=== PATIENT | female | born 1940 | race Hispanic/Latino ===

== ENCOUNTER 2017-02-15 20:30 | Outpatient (CLI) | payer MEDICARE, MEDICAID | END 2017-02-15 20:31 | disposition home or self-care (01) | LOC: SLEEPLAB 20:30 | PROVIDERS: ATTEND Family Medicine | DX: G47.33 Obstructive sleep apnea (adult) (pediatric) (principal); I11.0 Hypertensive heart disease with heart failure; I50.9 Heart failure, unspecified; E11.9 Type 2 diabetes mellitus without complications; I25.10 Atherosclerotic heart disease of native coronary artery without angina pectoris; G47.10 Hypersomnia, unspecified; I48.91 Unspecified atrial fibrillation; R06.83 Snoring | CPT/HCPCS: 95811 ==

== ENCOUNTER 2017-08-25 18:41 | Inpatient (IN) | payer MEDICARE, MEDICAID ==
[2017-08-25 19:51] LABS: #Eosinphils 0.1 thou/uL (0.0-0.7); #Lymphocytes 0.9 thou/uL (1.20-3.40); #Monocytes 0.6 thou/uL (0.11-0.59); #Neutrophils 2.9 thou/uL (1.40-6.50); %Basophils 0.6 % (0.0-1.0); %Eosinophils 2.7 % (0.0-10.0); %Lymphocytes 19.4 % (21.0-51.0); %Neutrophils 64.3 % (42.0-75.0); Hemoglobin 13.1 g/dL (12.0-16.0); Mean Corpuscular HGB CONC 33.4 g/dL (32.0-36.0); Mean Corpuscular Hemoglobin 32.6 pg (27.0-31.0); Mean Corpuscular Volume 97.6 fl (81.0-99.0); Mean Platelet Volume 7.8 fL (7.4-10.4); Platelet Count 160 thou/uL (130-400); RBC Distribution Width 13.6 % (11.5-14.5); Red Blood Cell (RBC) Count 4.01 mill/uL (4.20-5.40); White Blood Cell (WBC) Count 4.5 thou/uL (4.8-10.8)
[2017-08-25 20:04] LABS: Bilirubin Negative (Negative); Blood, Urine Moderate (Negative); Clarity CLOUDY (Clear); Glucose, Urine (Dipstick) Negative (Negative); Leukocyte Large (Negative); Nitrite Negative (Negative); Protein, Urine (Dipstick) 100 mg/dL (Neg-Trace); Specific Gravity, Urine 1.015 (1.002-1.036); Urobilinogen 0.2 mg/dL (0.2-1.0)
[2017-08-25 20:11] LABS: Bacteria/HPF 4+ HPF (None Seen); Hyaline Casts/LPF NONE SEEN LPF (0-3 Hyaline); WBC/HPF 21-50 HPF (0-3)
[2017-08-25 20:11] LABS: ALT (SGPT) 13 U/L (8-55); AST (SGOT) 23 U/L (5-34); Alkaline Phosphatase 196 U/L (40-150); Anion Gap 16 mmol/L (10-20); BUN (Urea Nitrogen) 35 mg/dL (9.8-20.1); Bilirubin, Total 0.8 mg/dL (0.2-1.2); Calc. Creatinine Clearance 0 mL/min (70-130); Calcium 9.5 mg/dL (7.8-10.44); Carbon Dioxide 32 mmol/L (23-31); Chloride 93 mmol/L (98-107); Estimated GFR-MDRD 11; Globulin 3.9 g/dL (2.4-3.5); Glucose 150 mg/dL (83-110); Potassium 3.3 mmol/L (3.5-5.1); Protein, Total 7.9 g/dL (6.0-8.3); Sodium 138 mmol/L (136-145)
[2017-08-25 20:22] LABS: CKMB 2.8 ng/mL (0-6.6); Troponin I 0.202 ng/mL (< 0.028)
--- NOTE | 2017-08-25 21:28 | CT ---
ABDOMEN AND PELVIS CT SCAN WITHOUT IV CONTRAST: HISTORY: A 77-year-old female with centralized abdominal pain and loss of appetite. The patient is on dialysi s. FINDINGS: Minimal increased markings in the left lung base, possibly some subsegmental atelectasis or mild duplicating machine operator bam change. Cardiomegaly. Multiple gallstones within the gallbladder without gallbladder wall thick ening or pericholecystic fat stranding. The liver, pancreas, and spleen appear unremarkable. Both k idneys are small and show some chronic calcifications. There are two areas of nodularity involving t he posterior aspect of the left kidney. One approximates 1.7 cm. These could potentially represent solid masses or may just represent some prominent lobulation. There are some prominent vascula r calcifications. There is some moderate distention of the colon with gas and fecal material, inclu ding a dilated rectum and rectosigmoid region. No CT evidence for acute appendicitis. No abscess or abnormal fluid collection within the abdomen or pelvis. The bladder is somewhat contracted and has a somewhat thick wall, probably related to the degree of contraction. There is an old, severe compression fracture at T12 with marked associated canal stenosis, but this w as present on a prior, 02/13/2016, plain film examination. IMPRESSION: Cardiomegaly. Minimal parenchymal changes in the left base, nonspecific, possibly chronic. Small ch ronic appearing kidneys bilaterally. The left kidney has two focal nodular areas projecting posterio rly, possibly representing small masses or prominent lobulation. No hydronephrosis. Cholelith iasis in the dependent portion of the gallbladder without evidence for gallbladder wall thickening or pericholecystic fluid or abnormal fat stranding. Colonic dilatation and distention with gas and ousmane e fecal material. Other findings as above. POS: [facility]
--- NOTE | 2017-08-25 21:35 | RAD ---
UPRIGHT PORTABLE CHEST ONE VIEW: HISTORY: A 77-year-old female with a history of fatigue, decreased appetite, altered mental status, and insomn ia. FINDINGS: There is considerable rotation to the left. There is a left ICD. There is bilateral vascular conges tion and cardiomegaly. No confluent pneumonia or overt edema. IMPRESSION: Rotation to the left. Left implantable cardioverter-defibrillator. Bilateral vascular congestion wi th cardiomegaly without confluent pneumonia or overt edema. POS: [facility]
[2017-08-25] MEDS ORDERED: Ondansetron ODT 4 MG TAB ONE (22:00)
[2017-08-25] MEDS ORDERED: Aspirin 325 MG TAB ONE (22:53)
[2017-08-26 00:28] LABS: Troponin I 0.193 ng/mL (< 0.028)
[2017-08-26] MEDS ORDERED: Ondansetron ODT 4 MG TAB SL PRN (02:10)
[2017-08-26] MEDS ORDERED: Ondansetron HCl/PF 4 MG/2 ML Vial IVP PRN ×2 (02:10→06:46)
[2017-08-26] MEDS ORDERED: Acetaminophen 325 MG TAB PO PRN ×2 (02:10→06:46)
[2017-08-26 03:13] LABS: Troponin I 0.207 ng/mL (< 0.028)
[2017-08-26 03:37] VITALS: BMI 20.7
[2017-08-26 05:55] LABS: #Eosinphils 0.1 thou/uL (0.0-0.7); #Lymphocytes 1.3 thou/uL (1.20-3.40); #Monocytes 0.6 thou/uL (0.11-0.59); #Neutrophils 2.3 thou/uL (1.40-6.50); %Basophils 0.5 % (0.0-1.0); %Eosinophils 3.2 % (0.0-10.0); %Lymphocytes 30.9 % (21.0-51.0); %Monocytes 12.8 % (0.0-10.0); %Neutrophils 52.6 % (42.0-75.0); Hemoglobin 11.9 g/dL (12.0-16.0); Mean Corpuscular HGB CONC 33.2 g/dL (32.0-36.0); Mean Corpuscular Hemoglobin 32.6 pg (27.0-31.0); Mean Platelet Volume 8.1 fL (7.4-10.4); Platelet Count 150 thou/uL (130-400); RBC Distribution Width 13.7 % (11.5-14.5); Red Blood Cell (RBC) Count 3.65 mill/uL (4.20-5.40); White Blood Cell (WBC) Count 4.3 thou/uL (4.8-10.8)
[2017-08-26 06:18] LABS: ALT (SGPT) 12 U/L (8-55); AST (SGOT) 20 U/L (5-34); Albumin 3.4 g/dL (3.4-4.8); Alkaline Phosphatase 144 U/L (40-150); Anion Gap 15 mmol/L (10-20); BUN (Urea Nitrogen) 40 mg/dL (9.8-20.1); Bilirubin, Total 0.6 mg/dL (0.2-1.2); Calc. Creatinine Clearance 10 mL/min (70-130); Calcium 8.8 mg/dL (7.8-10.44); Carbon Dioxide 32 mmol/L (23-31); Chloride 95 mmol/L (98-107); Estimated GFR-MDRD 10; Globulin 3.1 g/dL (2.4-3.5); Glucose 94 mg/dL (83-110); Magnesium 2.3 mg/dL (1.6-2.6); Potassium 3.3 mmol/L (3.5-5.1); Protein, Total 6.5 g/dL (6.0-8.3); Sodium 139 mmol/L (136-145)
[2017-08-26] MEDS ORDERED: Loperamide HCl 2 MG CAP PO PRN (06:46)
[2017-08-26] MEDS ORDERED: Senokot 8.6 MG TAB PO PRN (06:46)
[2017-08-26] MEDS ORDERED: Ondansetron ODT 4 MG TAB PO PRN (06:46)
[2017-08-26] MEDS ORDERED: Artificial Tears 18 DROP/0.9 ML EA EYE PRN (06:46)
[2017-08-26] MEDS ORDERED: hydrALAZINE 20 MG/ML VIAL SLOW IVP PRN (06:46)
[2017-08-26] MEDS ORDERED: Mag-Al 1200 mg/1200 mg/30 ML UDCUP PO PRN (06:46)
[2017-08-26] MEDS ORDERED: Diabetic Tussin 200 MG/10 ML UDCUP PO PRN (06:46)
[2017-08-26] MEDS ORDERED: Chloraseptic Spray 180 ml Bottle PO PRN (06:46)
[2017-08-26] MEDS ORDERED: Nitroglycerin 0.4 MG TAB (25 Tab Bottle) SL PRN (06:46)
[2017-08-26] MEDS ORDERED: Loratadine 10 MG TAB PO PRN (06:46)
[2017-08-26] MEDS ORDERED: Sodium Chloride 0.65% Nasal 44 ML BOT EA NARE PRN (06:46)
[2017-08-26] MEDS ORDERED: Eucerin (Mineral Oil/Petrolatum,White) 30 gm Jar TOP PRN (06:46)
[2017-08-26] MEDS ORDERED: Milk Of Magnesia 30 ML UDCUP PO PRN (06:46)
[2017-08-26] MEDS ORDERED: cefTRIAXone\\ROCEPHIN 1 GM in Sodium Chloride 0.9% 100 ML IVPB SCH (07:00)
[2017-08-26] MEDS ORDERED: Potassium Chloride 20 MEQ TAB PO SCH (07:00)
[2017-08-26] MEDS ORDERED: Carvedilol 3.125 MG TAB PO SCH (09:00)
[2017-08-26] MEDS ORDERED: SACUBITRIL PO SCH (09:00)
[2017-08-26] MEDS ORDERED: Sacubitril 24.5 MG/Valsartan 25.5 MG TABLET PO SCH (09:00)
[2017-08-26] MEDS ORDERED: Non-Formulary Item 1 EACH (Ubidecarenone [Co Q-10] 100 MG) PO SCH (09:00)
[2017-08-26] MEDS ORDERED: VALSARTAN PO SCH (09:00)
[2017-08-26] MEDS: Ubidecarenone 50 MG CAP PO SCH (09:04)
[2017-08-26] MEDS: Folic Acid/Vit B Comp W-C PO SCH (09:05)
[2017-08-26] MEDS: Heparin 5,000 UNITS/ML VIAL SC SCH ×2 (09:05→20:55)
[2017-08-26] MEDS: Aspirin 81 mg Enteric Coated Tablet PO SCH (09:08)
[2017-08-26] MEDS: Multivitamin W/ Minerals 1 TAB PO SCH (09:11)
[2017-08-26] MEDS: Calcium Acetate 667 MG CAP PO SCH ×3 (09:12→18:12)
[2017-08-26] MEDS: Carvedilol 3.125 MG TAB PO SCH ×2 (09:19→20:54)
--- NOTE | 2017-08-26 12:02 | HP ---
PRIMARY CARE PHYSICIAN: Lloyd Murray M.D. REASON FOR ADMISSION: Failure to thrive in adult, urinary tract infection. HISTORY OF PRESENT ILLNESS: A 77-year-old female who has end-stage renal disease on hemodia lysis, who was brought to emergency room by family member for loss of appetite and generalized weakne ss for last 3-4 days. The patient was becoming weak day by day and she was feeling subjective fever at home. In the emergency room, this patient was found with urinary tract infection. She was afebri le. She also had elevated troponin, though she was not complaining of any chest pain, palpitation, d izziness or shortness of breath. She denies any constipation, diarrhea, melena or hematochezia. Patient was evaluated in the emergency room during night time and subsequently she was already admitt ed to medical floor for further evaluation and treatment for urinary tract infection. REVIEW OF SYSTEMS: The following complete review of systems was negative, unless otherwise mentioned in the HPI or below: Constitutional: Weight loss or gain, ability to conduct usual activities. Skin: Rash, itching. Eyes: Double vision, pain. ENT/Mouth: Nose bleeding, neck stiffness, pain, tenderness. Cardiovascular: Palpitations, dyspnea on exertion, orthopnea. Respiratory: Shortness of breath, wheezing, cough, hemoptysis, fever or night sweats. Gastrointestinal: Poor appetite, abdominal pain, heartburn, nausea, vomiting, constipation, or diarr hea. Genitourinary: Urgency, frequency, dysuria, nocturia. Musculoskeletal: Pain, swelling. Neurologic/Psychiatric: Anxiety, depression. Allergy/Immunologic: Skin rash, bleeding tendency. Please see my HPI for pertinent positive and negative. All other review of systems reviewed and nega tive except as mentioned in the HPI. ALLERGIES: ATIVAN. CURRENT HOME MEDICATIONS: Coenzyme Q10 100 mg p.o. daily, vitamin D2 50,000 units weekly, aspirin 81 mg daily, midodrine 2.5 mg Friday, Friday, and Friday on dialysis days, Coreg 3.125 half tablet t wice daily, PhosLo 667 mg 3 times daily and Entresto one tablet twice daily. PAST MEDICAL HISTORY: Congestive heart failure, type of heart failure is not known; diet controlled diabetes; hypertension; dementia; secondary hyperparathyroidism of renal origin; end-stage renal dise ase, on hemodialysis. PAST SURGICAL HISTORY: Dialysis access in the right arm, pacemaker placement, cholecystectomy, and h ysterectomy. SOCIAL HISTORY: Patient lives at home with her family. No history of tobacco, alcohol or illicit dr ug abuse. PAST PSYCHIATRIC HISTORY: Reviewed and negative. FAMILY HISTORY: No strong family history of premature coronary artery disease, stroke or cancer. EMERGENCY ROOM COURSE: Patient was given Rocephin 1 gram, aspirin 324 mg, and Zofran 4 mg in the [facility] room. PHYSICAL EXAMINATION: VITAL SIGNS: On arrival, blood pressure 131/83, pulse 70, respiratory rate 20, temperature 98.2, sat uration 100% on room air, weight 56.7 kilograms. GENERAL: Patient is currently alert, awake, no obvious acute distress. HEAD: Normocephalic, atraumatic. EYES: Pupils round, reactive to light. Extraocular muscle intact. ENT: Oropharynx within normal limits. Moist mucous membranes, no oral lesion, no pharyngeal erythem a, no exudate. NECK: Supple, no JVD, no thyromegaly, no carotid bruit, no jugular venous distention. LUNGS: Clear to auscultation without any rhonchi or rales. CARDIAC: S1 and S2 appears regular. No murmur, no gallop, no rub. ABDOMEN: Soft, bowel sounds present. Mild suprapubic discomfort noted. No peritoneal sign, no guar ding, no rigidity, no rebound. BACK: Examination unremarkable, no CVA tenderness. EXTREMITIES: Upper extremity passive movements of all joints are normal. Dialysis access site in th e right upper extremity with palpable thrill. Lower extremity, no edema. Good peripheral pulsation. SKIN: No skin rash. HEMATOLOGICAL SYSTEM: No lymphadenopathy. PSYCHIATRIC: Normal affect. HEMATOLOGIC SYSTEM: No lymphadenopathy. NEUROLOGIC: The patient is moving all four limbs. Speech normal. Motor and sensation within normal limits. Grossly nonfocal examination. IMAGING DATA AND SIGNIFICANT LABORATORY DATA: 1. EKG showing pacemaker rhythm, right bundle branch block pattern, nonspecific ST-T changes in infe rior leads. 2. Chest x-ray based on my review, AICD in place, bilateral pulmonary vascular congestion, cardiomeg donna without any pneumonia. 3. CT of the abdomen and pelvis without contrast showing chronic changes at left lung base, atrophic kidney, cholelithiasis. 4. CBC: WBC 4.5, hemoglobin 13.1, platelet 160. 5. BMP: Sodium 138, potassium 3.3, chloride 93, carbon dioxide 32, anion gap 16, BUN 35, creatinine 3.99, glucose 150, calcium 9.5. 6. LFT: AST 23, ALT 13, alkaline phosphatase 196, albumin 4.0. CK-MB 2.8, troponin 0.202, then 0.1 93, then 0.207. Urinalysis suggestive of urinary tract infection. ASSESSMENT AND PLAN/IMPRESSION: 1. Failure to thrive in adult, most likely related with underlying infection with urinary tract infe ction and underlying medical problem. The patient will be given nutritional supplement with Nepro t. i.d. 2. Urinary tract infection. We will continue Rocephin 1 gram q.24 hours and follow up on urine cult ure result. Based on culture result, we will change to antibiotic therapy accordingly. 3. End-stage renal disease, on hemodialysis. We will consult Nephrology for maintenance hemodialysi s while in hospital. The patient is due for dialysis on Friday, Friday and Friday. 4. Secondary hyperparathyroidism of renal origin. We will continue PhosLo 667 mg t.i.d. 5. Chronic congestive heart failure, type of EF is not known and that is why we will obtain echocard iography to assess ejection fraction and other structural abnormality. While in hospital, we will co ntinue low dose of Coreg as well as Entresto, which she is taking at home. 6. Hypotension, orthostatic. We will continue midodrine 2.5 mg on Friday, Friday and Friday. 7. Hypokalemia. We will give her potassium chloride 20 mEq p.o. one time dose. 8. Elevated troponin. We will obtain echocardiography to assess ejection fraction and other structu ral abnormality. We will continue with aspirin 81 mg p.o. daily. 9. Anemia of renal disease. We will continue Nephro-Ernie one tablet p.o. daily and ferrous sulfate 325 mg p.o. daily and multivitamin 1 tablet p.o. daily. 10. Deep venous thrombosis prophylaxis, heparin 5000 units subcu twice daily. 11. Gastrointestinal prophylaxis, Protonix 40 mg p.o. daily. CODE STATUS: The patient is FULL CODE. Patient does not have any surrogate decision maker at this p oint. Disposition plan based on clinical course. We are expecting patient's stay in hospital more than 2 m idnights. Patient will need PT/OT evaluation and possible alf home evaluation as well. Plan of care discussed with the patient in detail.
[2017-08-26] MEDS: Sacubitril 24.5 MG/Valsartan 25.5 MG TABLET PO SCH (20:55)
[2017-08-26] MEDS: cefTRIAXone\\ROCEPHIN 1 GM, Syringe 0.4 ML in Sterile Water 9.6 ML SLOW IVP SCH (20:55)
[2017-08-26] MEDS: HYDROcodone/Acetaminophen 5/325 mg Tablet PO PRN (20:56)
[2017-08-27 04:53] LABS: #Eosinphils 0.3 thou/uL (0.0-0.7); #Lymphocytes 1.5 thou/uL (1.20-3.40); #Monocytes 0.6 thou/uL (0.11-0.59); #Neutrophils 2.3 thou/uL (1.40-6.50); %Basophils 0.9 % (0.0-1.0); %Eosinophils 5.6 % (0.0-10.0); %Monocytes 12.7 % (0.0-10.0); %Neutrophils 48.9 % (42.0-75.0); Hemoglobin 12.2 g/dL (12.0-16.0); Mean Corpuscular HGB CONC 33.6 g/dL (32.0-36.0); Mean Corpuscular Hemoglobin 33.8 pg (27.0-31.0); Mean Platelet Volume 8.3 fL (7.4-10.4); Platelet Count 130 thou/uL (130-400); RBC Distribution Width 13.6 % (11.5-14.5); Red Blood Cell (RBC) Count 3.61 mill/uL (4.20-5.40); White Blood Cell (WBC) Count 4.7 thou/uL (4.8-10.8)
[2017-08-27 05:03] LABS: Albumin 3.3 g/dL (3.4-4.8); Anion Gap 16 mmol/L (10-20); BUN (Urea Nitrogen) 64 mg/dL (9.8-20.1); BUN/Creatinine Ratio 11.17; Calc. Creatinine Clearance 7 mL/min (70-130); Calcium 8.9 mg/dL (7.8-10.44); Carbon Dioxide 34 mmol/L (23-31); Chloride 93 mmol/L (98-107); Estimated GFR-MDRD 7; Glucose 88 mg/dL (83-110); Phosphorus 5.1 mg/dL (2.3-4.7); Potassium 4.2 mmol/L (3.5-5.1); Sodium 139 mmol/L (136-145)
[2017-08-27] MEDS: Folic Acid/Vit B Comp W-C PO SCH (08:12)
[2017-08-27] MEDS: Sacubitril 24.5 MG/Valsartan 25.5 MG TABLET PO SCH ×2 (08:12→20:29)
[2017-08-27] MEDS: Aspirin 81 mg Enteric Coated Tablet PO SCH (08:13)
[2017-08-27] MEDS: Midodrine HCl 5 MG TAB PO SCH (08:13)
[2017-08-27] MEDS: Carvedilol 3.125 MG TAB PO SCH ×2 (08:15→20:28)
[2017-08-27] MEDS: Multivitamin W/ Minerals 1 TAB PO SCH (08:16)
[2017-08-27] MEDS: Calcium Acetate 667 MG CAP PO SCH ×3 (08:16→16:05)
[2017-08-27] MEDS: Ubidecarenone 50 MG CAP PO SCH (08:18)
[2017-08-27] MEDS ORDERED: MIDODRINE HCL 2.5 MG PO SCH (09:00)
[2017-08-27] MEDS: Heparin 5,000 UNITS/ML VIAL SC SCH ×2 (09:45→20:28)
--- NOTE | 2017-08-27 10:50 | PDOC.PN ---
- Subjective Encounter Start Date: 08/27/17 Encounter Start Time: 09:20 -: old records requested/rev Patient seen and examined. No new complaints. No overnight events - Objective Resuscitation Status: Resuscitation Status FULL:Full Resuscitation MAR Reviewed: Yes Vital Signs & Weight: Vital Signs (12 hours) Temp Pulse Resp BP Pulse Ox 08/27/17 08:06 97.3 F L 70 14 125/60 96 08/27/17 08:00 97.3 F L 70 14 96 Weight Weight 125 lb 0.034 oz I&O: 08/26/17 08/27/17 08/28/17 06:59 06:59 06:59 Intake Total 380 Balance 380 Result Diagrams: 08/27/17 03:51 08/27/17 03:51 Phys Exam - Physical Examination Constitutional: NAD HEENT: PERRLA, moist MMs, sclera anicteric Neck: no JVD, supple Respiratory: no wheezing, no rales, no rhonchi Cardiovascular: RRR, no significant murmur, no rub Gastrointestinal: soft, non-tender, no distention, positive bowel sounds Musculoskeletal: no edema, pulses present Neurological: non-focal, normal sensation Lymphatic: no nodes Psychiatric: normal affect Skin: no rash, normal turgor Dx/Plan (1) Elevated troponin Code(s): R74.8 - ABNORMAL LEVELS OF OTHER SERUM ENZYMES Status: Acute (2) Failure to thrive in adult Status: Acute (3) Hypotension Status: Acute (4) UTI (urinary tract infection) Status: Acute (5) Anemia of renal disease Code(s): D63.1 - ANEMIA IN CHRONIC KIDNEY DISEASE Status: Chronic (6) CHF (congestive heart failure) Code(s): I50.9 - HEART FAILURE, UNSPECIFIED Status: Chronic (7) ESRD (end stage renal disease) on dialysis Code(s): N18.6 - END STAGE RENAL DISEASE; Z99.2 - DEPENDENCE ON RENAL DIALYSIS Status: Chronic (8) Secondary hyperparathyroidism of renal origin Code(s): N25.81 - SECONDARY HYPERPARATHYROIDISM OF RENAL ORIGIN Status: Chronic - Plan cont current plan of care, plan discussed w/ family, PT/OT, psych social worker * medication reviewed as below * symptomatic treatment * await placement * continue rocephin * echo will be done * tomorrow plan for discharge to [place] once approved * discussed with family. Review of Systems - Review of Systems Other: unable to review due to dementia - Medications/Allergies Allergies/Adverse Reactions: Allergies Allergy/AdvReac Type Severity Reaction Status Date / Time lorazepam [From Ativan] AdvReac Verified 08/26/17 02:10 Medications: Current Medications Acetaminophen (Tylenol) 650 mg PO Q4H PRN PRN Reason: Headache/Fever or Pain Hydrocodone Bitart/Acetaminophen ([place] 5/325) 1 tab PO Q4H PRN PRN Reason: Moderate Pain (4-6) Last Admin: 08/26/17 20:56 Dose: 1 tab Al Hydroxide/Mg Hydroxide (Maalox) 30 ml PO Q6H PRN PRN Reason: Heartburn or Indigestion Artificial Tears (Tears Naturale) 0 drop EA EYE PRN PRN PRN Reason: Dry Eyes Aspirin (Ecotrin) 81 mg PO DAILY [facility] Last Admin: 08/27/17 08:13 Dose: 81 mg Calcium Acetate (Phoslo) 667 mg PO TID-WM [facility] Last Admin: 08/27/17 08:16 Dose: 667 mg Carvedilol (Coreg) 1.575 mg PO BID [facility] Last Admin: 08/27/17 08:15 Dose: 1.575 mg Coenzyme Q10 (Coenzyme Q10) 100 mg PO DAILY [facility] Last Admin: 08/27/17 08:18 Dose: 100 mg Guaifenesin (Robitussin Sf) 200 mg PO Q4H PRN PRN Reason: Cough Heparin Sodium (Porcine) (Heparin) 5,000 units SC BID [facility] Last Admin: 08/27/17 09:45 Dose: Not Given Hydralazine HCl (Apresoline) 10 mg SLOW IVP Q4H PRN PRN Reason: Systolic BP > 180 Ceftriaxone Sodium 1 gm/ (Syringe 0.4 ml/ Sterile Water) 10 mls @ 120 mls/hr SLOW IVP 2100 [facility] Last Admin: 08/26/17 20:55 Dose: 10 mls Iron/Minerals/Multivitamins (Theragran M) 1 tab PO DAILY [facility] Last Admin: 08/27/17 08:16 Dose: 1 tab Loperamide HCl (Imodium) 2 mg PO PRN PRN PRN Reason: Diarrhea/Loose Stools Loratadine (Claritin) 10 mg PO DAILYPRN PRN PRN Reason: Sinus Symptoms Magnesium Hydroxide (Milk Of Magnesium) 30 ml PO DAILYPRN PRN PRN Reason: Constipation Midodrine (Proamatine) 2.5 mg PO MWF [facility] Last Admin: 08/27/17 08:13 Dose: 2.5 mg Mineral Oil/White Petrolatum (Eucerin Cream) 0 gm TOP BIDPRN PRN PRN Reason: Dry Skin Nitroglycerin (Nitrostat) 0.4 mg SL Q5MIN PRN PRN Reason: Chest Pain Ondansetron HCl (Zofran Odt) 4 mg PO Q6H PRN PRN Reason: Nausea/Vomiting Ondansetron HCl (Zofran) 4 mg IVP Q6H PRN PRN Reason: Nausea/Vomiting Pantoprazole Sodium (Protonix) 40 mg PO DAILY [facility] Last Admin: 08/27/17 08:14 Dose: 40 mg Phenol (Chloraseptic [place] 180 Ml Bot) 0 ml PO PRN PRN PRN Reason: Sore Throat Sacubitril/Valsartan (Entresto 24.5 Mg-25.5 Mg Tablet) 1 tab PO BID [facility] Last Admin: 08/27/17 08:12 Dose: 1 tab Senna (Senokot) 2 tab PO HSPRN PRN PRN Reason: Constipation Sodium Chloride ([place] Nasal [place] 0.65%) 0 ml EA NARE QIDPRN PRN PRN Reason: Nasal Congestion Sodium Chloride (Flush - Normal Saline) 10 ml IVF Q12HR [facility] Last Admin: 08/27/17 08:20 Dose: 10 ml Sodium Chloride (Flush - Normal Saline) 10 ml IVF PRN PRN PRN Reason: Saline Flush Vitamin B Complex/Vit C/Folic Acid (Nephro-Ernie Tablet) 1 tab PO DAILY [facility] Last Admin: 08/27/17 08:12 Dose: 1 tab
--- NOTE | 2017-08-27 10:51 | CON ---
DATE OF CONSULTATION: 08/26/2017 CONSULTING PHYSICIAN: Dr. Daniel. REASON FOR CONSULTATION: End stage renal disease, evaluation and care. REASON FOR ADMISSION: Failure to thrive, loss of appetite. HISTORY OF PRESENT ILLNESS: This is a 77-year-old female with history of end- stage renal disease, hypertension, coronary artery disease, type 2 diabetes, and dementia, came to the hospital with loss of appetite and weakness and is being evaluated for possible UTI. Nephrology is consulted for maintenance hemodialysis, he gets dialysis Friday, Friday, and Friday. Had dialysis yesterday. No fever or chills. No nausea, vomiting reported. PAST MEDICAL HISTORY: Positive for end-stage renal disease, coronary artery disease, type 2 diabetes, dementia, hypertension. PAST SURGICAL HISTORY: Dialysis access placement, cholecystectomy, hysterectomy. HOME MEDICATIONS: Coenzyme Q10, vitamin D2, aspirin, midodrine, Coreg, PhosLo, and Entresto. ALLERGIES: ATIVAN. SOCIAL HISTORY: No smoking, alcohol or drug abuse. FAMILY HISTORY: No history of any kidney disease. REVIEW OF SYSTEMS: The following complete review of systems was negative, unless otherwise mentioned in the HPI or below: Constitutional: Weight loss or gain, ability to conduct usual activities. Skin: Rash, itching. Eyes: Double vision, pain. ENT/Mouth: Nose bleeding, neck stiffness, pain, tenderness. Cardiovascular: Palpitations, dyspnea on exertion, orthopnea. Respiratory: Shortness of breath, wheezing, cough, hemoptysis, fever or night sweats. Gastrointestinal: Poor appetite, abdominal pain, heartburn, nausea, vomiting, constipation, or diarrhea. Genitourinary: Urgency, frequency, dysuria, nocturia. Musculoskeletal: Pain, swelling. Neurologic/Psychiatric: Anxiety, depression. Allergy/Immunologic: Skin rash, bleeding tendency. PHYSICAL EXAMINATION: GENERAL: This is an obese female in no apparent distress. VITAL SIGNS: Temperature 97.8, pulse 70, respiratory rate 16, blood pressure 114/69. HEENT: Atraumatic, normocephalic. Oral mucosa is moist. NECK: Supple, no masses. CARDIOVASCULAR: S1, S2 heard. Rate and rhythm regular. RESPIRATORY: Clear. GI: Abdomen is soft. MUSCULOSKELETAL: There is no edema. DERMATOLOGIC: No rash. NEUROLOGIC: Alert, awake. PSYCHIATRIC: Normal mood and affect. LABORATORY: Hemoglobin is 13.1, potassium is 3.3, BUN is 40, creatinine is 4.3. ASSESSMENT AND PLAN: 1. End-stage renal disease on hemodialysis. Plan is to continue on dialysis as tolerated. 2. Dementia 3. Edema, controlled. 4. Hypertension. 5. Hypokalemia. We will monitor. Increase dietary intake. 6. Anemia. Hemoglobin is stable. Plan is to continue on dialysis as tolerated and increase p.o. intake. We will follow. Pyuria. Follow up cultures. We will continue to follow. Thank you for the consult. GEOFFREY
--- NOTE | 2017-08-27 12:12 | PRG ---
Patient Name: MARYAN WEBER Date of service: 08/27/2017 Subjective: Patient was seen and examined at bedside and overnight events noted. Patient denies any shortness of breath or chest pain or palpitation. No history of nausea or vomiting or diarrhea or fever or chills or cramps. Objective: General: This is a well-built female in no apparent distress. Vital signs: Temperature 97.3, pulse 70, respirations 20, blood pressure 125/60. HEENT: Atraumatic, normocephalic. Oral mucosa is moist. Neck: Supple. Cardiovascular: S1 S2 heard. Rate and rhythm regular. Respiratory: Clear to auscultation. Gastrointestinal: Abdomen is soft. Musculoskeletal: No tenderness. No edema. Dermatologic: No skin rash. Neurologic: Alert and awake and oriented X3. No focal neurologic deficits. Moving all the extremities. Psychiatric: Mood and affect normal. LABORATORY DATA: Potassium is 4.2, BUN 64, creatinine is 5.7. ASSESSMENT AND PLAN: 1. End-stage renal disease. Continue hemodialysis. 2. Edema, controlled. 3. Hypertension. 4. Anemia. 5. Continue dialysis as tolerated Friday, Friday, and Friday.
[2017-08-27] MEDS ORDERED: Ampicillin 1 GM in Sodium Chloride 0.9% 100 ML IVPB SCH (17:00)
[2017-08-27] MEDS ORDERED: Ziprasidone 20 MG VIAL IM PRN (18:10)
[2017-08-27] MEDS: cefTRIAXone\\ROCEPHIN 1 GM, Syringe 0.4 ML in Sterile Water 9.6 ML SLOW IVP SCH (20:28)
[2017-08-28] MEDS: HYDROcodone/Acetaminophen 5/325 mg Tablet PO PRN (00:12)
[2017-08-28] MEDS: Multivitamin W/ Minerals 1 TAB PO SCH (07:49)
[2017-08-28] MEDS: Calcium Acetate 667 MG CAP PO SCH ×3 (07:49→16:37)
[2017-08-28] MEDS: Carvedilol 3.125 MG TAB PO SCH ×2 (07:50→21:11)
[2017-08-28] MEDS: Folic Acid/Vit B Comp W-C PO SCH (07:50)
[2017-08-28] MEDS: Aspirin 81 mg Enteric Coated Tablet PO SCH (07:51)
[2017-08-28] MEDS: Heparin 5,000 UNITS/ML VIAL SC SCH ×2 (07:51→21:13)
[2017-08-28] MEDS: Ubidecarenone 50 MG CAP PO SCH (07:57)
[2017-08-28] MEDS: Sacubitril 24.5 MG/Valsartan 25.5 MG TABLET PO SCH ×2 (11:00→21:12)
--- NOTE | 2017-08-28 12:31 | PDOC.PN ---
- Subjective Encounter Start Date: 08/28/17 Encounter Start Time: 09:30 -: old records requested/rev pt is confused, bedside, pt is ob bladder irrigation, no fever - Objective Resuscitation Status: Resuscitation Status FULL:Full Resuscitation MAR Reviewed: Yes Vital Signs & Weight: Vital Signs (12 hours) Temp Pulse Resp BP Pulse Ox 08/28/17 12:20 97.6 F 70 18 109/66 70 L 08/28/17 08:00 98.6 F 70 16 96 08/28/17 05:26 98.1 F 70 18 104/61 96 Weight Weight 125 lb 0.034 oz I&O: 08/27/17 08/28/17 08/29/17 06:59 06:59 06:59 Intake Total 380 515 Output Total 500 Balance 380 15 Result Diagrams: 08/27/17 03:51 08/27/17 03:51 Additional Labs: Accuchecks 08/28/17 08/27/17 04:25 20:43 POC Glucose 107 208 H Phys Exam - Physical Examination Constitutional: NAD HEENT: PERRLA, moist MMs, sclera anicteric Neck: no JVD, supple Respiratory: no wheezing, no rales, no rhonchi Cardiovascular: RRR, no significant murmur, no rub Gastrointestinal: soft, non-tender, no distention, positive bowel sounds Musculoskeletal: no edema, pulses present Neurological: moves all 4 limbs Lymphatic: no nodes Psychiatric: normal affect Skin: no rash, normal turgor Dx/Plan (1) Elevated troponin Code(s): R74.8 - ABNORMAL LEVELS OF OTHER SERUM ENZYMES Status: Acute (2) Failure to thrive in adult Status: Acute (3) Hypotension Status: Acute (4) UTI (urinary tract infection) Status: Acute (5) Anemia of renal disease Code(s): D63.1 - ANEMIA IN CHRONIC KIDNEY DISEASE Status: Chronic (6) CHF (congestive heart failure) Code(s): I50.9 - HEART FAILURE, UNSPECIFIED Status: Chronic (7) ESRD (end stage renal disease) on dialysis Code(s): N18.6 - END STAGE RENAL DISEASE; Z99.2 - DEPENDENCE ON RENAL DIALYSIS Status: Chronic (8) Secondary hyperparathyroidism of renal origin Code(s): N25.81 - SECONDARY HYPERPARATHYROIDISM OF RENAL ORIGIN Status: Chronic - Plan cont current plan of care, continue antibiotics, PT/OT, social worker psychiatric * continue bladder irrigation * continue iv antibiotics as ordered * urology recommendation noted * medication reviewed as below * symptomatic treatment * will need placement * possible discharge tomorrow. Review of Systems - Review of Systems Other: not reliable due to dementia - Medications/Allergies Allergies/Adverse Reactions: Allergies Allergy/AdvReac Type Severity Reaction Status Date / Time lorazepam [From Ativan] AdvReac Verified 08/26/17 02:10 Medications: Current Medications Acetaminophen (Tylenol) 650 mg PO Q4H PRN PRN Reason: Headache/Fever or Pain Hydrocodone Bitart/Acetaminophen ([place] 5/325) 1 tab PO Q4H PRN PRN Reason: Moderate Pain (4-6) Last Admin: 08/28/17 00:12 Dose: 1 tab Al Hydroxide/Mg Hydroxide (Maalox) 30 ml PO Q6H PRN PRN Reason: Heartburn or Indigestion Artificial Tears (Tears Naturale) 0 drop EA EYE PRN PRN PRN Reason: Dry Eyes Aspirin (Ecotrin) 81 mg PO DAILY [facility] Last Admin: 08/28/17 07:51 Dose: 81 mg Calcium Acetate (Phoslo) 667 mg PO TID-WM [facility] Last Admin: 08/28/17 07:49 Dose: 667 mg Carvedilol (Coreg) 1.575 mg PO BID [facility] Last Admin: 08/28/17 07:50 Dose: 1.575 mg Coenzyme Q10 (Coenzyme Q10) 100 mg PO DAILY [facility] Last Admin: 08/28/17 07:57 Dose: 100 mg Guaifenesin (Robitussin Sf) 200 mg PO Q4H PRN PRN Reason: Cough Heparin Sodium (Porcine) (Heparin) 5,000 units SC BID [facility] Last Admin: 08/28/17 07:51 Dose: 5,000 units Hydralazine HCl (Apresoline) 10 mg SLOW IVP Q4H PRN PRN Reason: Systolic BP > 180 Ceftriaxone Sodium 1 gm/ (Syringe 0.4 ml/ Sterile Water) 10 mls @ 120 mls/hr SLOW IVP 2100 [facility] Last Admin: 08/27/17 20:28 Dose: 10 mls Iron/Minerals/Multivitamins (Theragran M) 1 tab PO DAILY [facility] Last Admin: 08/28/17 07:49 Dose: 1 tab Loperamide HCl (Imodium) 2 mg PO PRN PRN PRN Reason: Diarrhea/Loose Stools Loratadine (Claritin) 10 mg PO DAILYPRN PRN PRN Reason: Sinus Symptoms Magnesium Hydroxide (Milk Of Magnesium) 30 ml PO DAILYPRN PRN PRN Reason: Constipation Midodrine (Proamatine) 2.5 mg PO MWF [facility] Last Admin: 08/27/17 08:13 Dose: 2.5 mg Mineral Oil/White Petrolatum (Eucerin Cream) 0 gm TOP BIDPRN PRN PRN Reason: Dry Skin Nitroglycerin (Nitrostat) 0.4 mg SL Q5MIN PRN PRN Reason: Chest Pain Ondansetron HCl (Zofran Odt) 4 mg PO Q6H PRN PRN Reason: Nausea/Vomiting Ondansetron HCl (Zofran) 4 mg IVP Q6H PRN PRN Reason: Nausea/Vomiting Pantoprazole Sodium (Protonix) 40 mg PO DAILY [facility] Last Admin: 08/28/17 07:50 Dose: 40 mg Phenol (Chloraseptic [place] 180 Ml Bot) 0 ml PO PRN PRN PRN Reason: Sore Throat Sacubitril/Valsartan (Entresto 24.5 Mg-25.5 Mg Tablet) 1 tab PO BID [facility] Last Admin: 08/27/17 20:29 Dose: 1 tab Senna (Senokot) 2 tab PO HSPRN PRN PRN Reason: Constipation Sodium Chloride ([place] Nasal [place] 0.65%) 0 ml EA NARE QIDPRN PRN PRN Reason: Nasal Congestion Sodium Chloride (Flush - Normal Saline) 10 ml IVF Q12HR [facility] Last Admin: 08/28/17 07:58 Dose: 10 ml Sodium Chloride (Flush - Normal Saline) 10 ml IVF PRN PRN PRN Reason: Saline Flush Vitamin B Complex/Vit C/Folic Acid (Nephro-Ernie Tablet) 1 tab PO DAILY [facility] Last Admin: 08/28/17 07:50 Dose: 1 tab Ziprasidone ([place]) 10 mg IM Q6H PRN PRN Reason: .INCREASED AGGITATION
--- NOTE | 2017-08-28 14:50 | PRG ---
DATE OF SERVICE: 08/28/2017 SUBJECTIVE: Patient was seen and examined at bedside and overnight events noted. Patient denies any shortness of breath or chest pain or palpitation. No history of nausea or vomiting or diarrhea or fever or chills or cramps. OBJECTIVE: GENERAL: This is an elderly female in no apparent distress. VITAL SIGNS: Temperature 98.1, pulse 70, respiratory rate 18, blood pressure 104/61. HEENT: Atraumatic, normocephalic. Oral mucosa is moist. NECK: Supple. CARDIOVASCULAR: S1 and S2 heard. Rate and rhythm regular. RESPIRATORY: Clear to auscultation. GASTROINTESTINAL: Abdomen is soft. MUSCULOSKELETAL: No tenderness. No edema. DERMATOLOGIC: No skin rash. NEUROLOGIC: Alert and awake and oriented x3. No focal neurologic deficits. Moving all the extremit ies. PSYCHIATRIC: Mood and affect normal. LABORATORY DATA: Potassium is 4.2, BUN is 64, creatinine is 5.7. ASSESSMENT AND PLAN: 1. End-stage renal disease. We will continue on hemodialysis Friday, Friday, and Friday as jose guadalupe ated. 2. Edema, controlled. 3. Hypertension. 4. Anemia. Monitor hemoglobin. We will continue on dialysis Friday, Friday, and Friday. We will follow.
[2017-08-28] MEDS: cefTRIAXone\\ROCEPHIN 1 GM, Syringe 0.4 ML in Sterile Water 9.6 ML SLOW IVP SCH (21:16)
--- NOTE | 2017-08-29 09:19 | PRG ---
DATE OF SERVICE: 08/29/2017 SUBJECTIVE: Patient was seen and examined at bedside and overnight events noted. Patient denies any shortness of breath or chest pain or palpitation. No history of nausea or vomiting or diarrhea or f ever or chills or cramps. OBJECTIVE: GENERAL: This is an obese female, seen during dialysis. VITAL SIGNS: Temperature 97.3, pulse 70, respiratory rate 16, blood pressure 121/68. HEENT: Atraumatic, normocephalic, oral mucosa is moist. NECK: Supple. CARDIOVASCULAR: S1, S2 heard, rate and rhythm regular. RESPIRATORY: Clear to auscultation. GASTROINTESTINAL: Abdomen is soft. MUSCULOSKELETAL: No tenderness, no edema. DERMATOLOGIC: No skin rash. NEUROLOGIC: Alert and awake and oriented x3. No focal neurologic deficits. Moving all the extremit ies. PSYCHIATRIC: Mood and affect normal. LABORATORY DATA: Not done today. ASSESSMENT AND PLAN: 1. End-stage renal disease, seen during dialysis. We will continue on dialysis as tolerated, tolera ting well so far. We will continue on dialysis Friday, Friday, and Friday. 2. Edema. We will remove fluid. 3. Hypertension. 4. Anemia. We will monitor hemoglobin. Plan is to continue on dialysis as tolerated.
--- NOTE | 2017-08-29 11:48 | PDOC.PN ---
- Subjective Encounter Start Date: 08/29/17 Encounter Start Time: 09:15 Patient seen and examined. No new complaints. No overnight events - Objective Resuscitation Status: Resuscitation Status FULL:Full Resuscitation MAR Reviewed: Yes Vital Signs & Weight: Vital Signs (12 hours) Temp Pulse Resp BP Pulse Ox 08/29/17 08:00 97.3 F L 70 16 98 08/29/17 07:49 97.3 F L 70 16 121/68 98 Weight Weight 125 lb 0.034 oz I&O: 08/28/17 08/29/17 08/30/17 06:59 06:59 06:59 Intake Total 515 120 Output Total 500 100 Balance 15 20 Result Diagrams: 08/27/17 03:51 08/27/17 03:51 Phys Exam - Physical Examination Constitutional: NAD HEENT: PERRLA, moist MMs, sclera anicteric Neck: no JVD, supple Respiratory: no wheezing, no rales, no rhonchi Cardiovascular: RRR, no significant murmur, no rub Gastrointestinal: soft, non-tender, no distention, positive bowel sounds Musculoskeletal: no edema, pulses present Neurological: non-focal, normal sensation, moves all 4 limbs Psychiatric: normal affect Skin: no rash, normal turgor Dx/Plan (1) Elevated troponin Code(s): R74.8 - ABNORMAL LEVELS OF OTHER SERUM ENZYMES Status: Acute (2) Failure to thrive in adult Status: Acute (3) Hypotension Status: Acute (4) UTI (urinary tract infection) Status: Acute Comment: due to VRE (5) Anemia of renal disease Code(s): D63.1 - ANEMIA IN CHRONIC KIDNEY DISEASE Status: Chronic (6) CHF (congestive heart failure) Code(s): I50.9 - HEART FAILURE, UNSPECIFIED Status: Chronic (7) ESRD (end stage renal disease) on dialysis Code(s): N18.6 - END STAGE RENAL DISEASE; Z99.2 - DEPENDENCE ON RENAL DIALYSIS Status: Chronic (8) Secondary hyperparathyroidism of renal origin Code(s): N25.81 - SECONDARY HYPERPARATHYROIDISM OF RENAL ORIGIN Status: Chronic - Plan cont current plan of care, plan discussed w/ family, continue antibiotics, PT/OT , convention services manager * continue bladder irrgiation till 3 pm * then will place gentamicin in bladder and then after 1 hour will remove * await C & S result of VRE to treat this pt as an outpt basis * will consult ID for treatment * medication reviewed as below * symptomatic treatment * social work is working on final discharge placement . Review of Systems - Review of Systems ENT: negative: Ear Pain, Ear Discharge, Nose Pain, Nose Discharge, Nose Congestion, Mouth Pain, Mouth Swelling, Throat Pain, Throat Swelling, Other Respiratory: negative: Cough, Dry, Shortness of Breath, Hemoptysis, SOB with Excertion, Pleuritic Pain, Sputum, Wheezing Cardiovascular: negative: chest pain, palpitations, orthopnea, paroxysmal nocturnal dyspnea, edema, light headedness, other Gastrointestinal: negative: Nausea, Vomiting, Abdominal Pain, Diarrhea, Constipation, Melena, Hematochezia, Other Genitourinary: negative: Dysuria, Frequency, Incontinence, Hematuria, Retention , Other Musculoskeletal: negative: Neck Pain, Shoulder Pain, Arm Pain, Back Pain, Hand Pain, Leg Pain, Foot Pain, Other - Medications/Allergies Allergies/Adverse Reactions: Allergies Allergy/AdvReac Type Severity Reaction Status Date / Time lorazepam [From Ativan] AdvReac Verified 08/26/17 02:10 Medications: Current Medications Acetaminophen (Tylenol) 650 mg PO Q4H PRN PRN Reason: Headache/Fever or Pain Hydrocodone Bitart/Acetaminophen ([place] 5/325) 1 tab PO Q4H PRN PRN Reason: Moderate Pain (4-6) Last Admin: 08/28/17 00:12 Dose: 1 tab Al Hydroxide/Mg Hydroxide (Maalox) 30 ml PO Q6H PRN PRN Reason: Heartburn or Indigestion Artificial Tears (Tears Naturale) 0 drop EA EYE PRN PRN PRN Reason: Dry Eyes Aspirin (Ecotrin) 81 mg PO DAILY [facility] Last Admin: 08/28/17 07:51 Dose: 81 mg Calcium Acetate (Phoslo) 667 mg PO TID-[facility] Last Admin: 08/28/17 16:37 Dose: 667 mg Carvedilol (Coreg) 1.575 mg PO BID [facility] Last Admin: 08/28/17 21:11 Dose: 1.575 mg Coenzyme Q10 (Coenzyme Q10) 100 mg PO DAILY [facility] Last Admin: 08/28/17 07:57 Dose: 100 mg Guaifenesin (Robitussin Sf) 200 mg PO Q4H PRN PRN Reason: Cough Heparin Sodium (Porcine) (Heparin) 5,000 units SC BID [facility] Last Admin: 08/28/17 21:13 Dose: 5,000 units Hydralazine HCl (Apresoline) 10 mg SLOW IVP Q4H PRN PRN Reason: Systolic BP > 180 Ceftriaxone Sodium 1 gm/ (Syringe 0.4 ml/ Sterile Water) 10 mls @ 120 mls/hr SLOW IVP 2100 [facility] Last Admin: 08/28/17 21:16 Dose: 10 mls Gentamicin Sulfate 240 mg/ (Sodium Chloride) 506 mls @ 0 mls/hr IRR 1500 [facility] PRN Reason: As Directed Stop: 08/29/17 17:00 Iron/Minerals/Multivitamins (Theragran M) 1 tab PO DAILY [facility] Last Admin: 08/28/17 07:49 Dose: 1 tab Loperamide HCl (Imodium) 2 mg PO PRN PRN PRN Reason: Diarrhea/Loose Stools Loratadine (Claritin) 10 mg PO DAILYPRN PRN PRN Reason: Sinus Symptoms Magnesium Hydroxide (Milk Of Magnesium) 30 ml PO DAILYPRN PRN PRN Reason: Constipation Midodrine (Proamatine) 2.5 mg PO MWF [facility] Last Admin: 08/27/17 08:13 Dose: 2.5 mg Mineral Oil/White Petrolatum (Eucerin Cream) 0 gm TOP BIDPRN PRN PRN Reason: Dry Skin Nitroglycerin (Nitrostat) 0.4 mg SL Q5MIN PRN PRN Reason: Chest Pain Ondansetron HCl (Zofran Odt) 4 mg PO Q6H PRN PRN Reason: Nausea/Vomiting Ondansetron HCl (Zofran) 4 mg IVP Q6H PRN PRN Reason: Nausea/Vomiting Pantoprazole Sodium (Protonix) 40 mg PO DAILY [facility] Last Admin: 08/28/17 07:50 Dose: 40 mg Phenol (Chloraseptic [place] 180 Ml Bot) 0 ml PO PRN PRN PRN Reason: Sore Throat Sacubitril/Valsartan (Entresto 24.5 Mg-25.5 Mg Tablet) 1 tab PO BID [facility] Last Admin: 08/28/17 21:12 Dose: 1 tab Senna (Senokot) 2 tab PO HSPRN PRN PRN Reason: Constipation Sodium Chloride ([place] Nasal [place] 0.65%) 0 ml EA NARE QIDPRN PRN PRN Reason: Nasal Congestion Sodium Chloride (Flush - Normal Saline) 10 ml IVF Q12HR [facility] Last Admin: 08/28/17 21:12 Dose: 10 ml Sodium Chloride (Flush - Normal Saline) 10 ml IVF PRN PRN PRN Reason: Saline Flush Vitamin B Complex/Vit C/Folic Acid (Nephro-Ernie Tablet) 1 tab PO DAILY [facility] Last Admin: 08/28/17 07:50 Dose: 1 tab Ziprasidone (Geodon) 10 mg IM Q6H PRN PRN Reason: .INCREASED AGGITATION
--- NOTE | 2017-08-29 12:56 | DIS ---
DATE OF ADMISSION: 08/25/2017 DATE OF DISCHARGE: 08/29/2017 PRIMARY CARE PHYSICIAN: Dr. Lloyd Murray. DISCHARGE DISPOSITION: Home/[facility] home. PRIMARY DISCHARGE DIAGNOSES: Urinary tract infection due to vancomycin-resistant enterococci ; acute encephalopathy; failure to thrive in adult; hypotension, resolved; demand ischemia of myocardium. SECONDARY DISCHARGE DIAGNOSES: Anemia of renal disease, chronic; diastolic heart failure; end-stage renal disease, on hemodialysis; secondary hyperparathyroidism of renal origin. PRIMARY PROCEDURE/OPERATION: Maintenance hemodialysis. RADIOLOGICAL INVESTIGATION: Abdomen and pelvis CT scan, chest x-ray, echocardiography. SIGNIFICANT LABORATORY DATA: Hemoglobin 12.2, creatinine 5.73. Troponin 0.207. Urinalysis consiste nt with UTI. Urine culture grew VRE. DISCHARGE MEDICATIONS: Antibiotic therapy will be deferred to Dr. Pham and Urology. Continue follo wing medications: Aspirin 81 mg p.o. daily, PhosLo 667 mg t.i.d., Coreg 3.125 half tablet b.i.d., vi tamin D3 1000 units p.o. daily, Cipro 250 mg p.o. daily, Pepcid 20 mg p.o. daily, Nephro-Ernie 1 table t p.o. daily, midodrine 2.5 mg p.o. Friday, Friday, Friday, Seroquel 12.5 mg p.o. at bedtime, Entr esto half tablet b.i.d., coenzyme Q10 100 mg p.o. daily. CONTRAINDICATIONS: None. CODE STATUS: FULL CODE. INPATIENT CONSULTANTS: Dr. Medina was consulted for maintenance hemodialysis. Dr. Dinora Odonnell, ur ologist, was following while in hospital. Dr. Pham consulted while in hospital. TEST RESULTS PENDING ON DISCHARGE: Culture and sensitivity result of VRE. ALLERGIES: LORAZEPAM. DISCHARGE PLAN: Post hospital, the patient will follow up with primary care physician as well as Dr. Dinora Odonnell and Dr. Pham as instructed. HOSPITAL COURSE: This is a 77-year-old female, who was admitted by me. Please see my HPI for furthe r details. The patient was having delirium. She was having altered mental status that was related w ith her symptomatic UTI. The patient's culture grew VRE. Official culture and sensitivity result is pending to decide final antibiotic therapy on discharge. While in hospital, she received Rocephin, and on discharge, we are considering Cipro if work; otherwise, Urology did a bladder irrigation while in hospital and patient is also getting gentamicin in bladder. Patient is requiring placement per f amily member, including [facility] home and subsequently long-term placement. At this point, ca se solar sales manager is working on her placement. If Urology okay as well as ID team consulted today and if he is okay, then we will consider discharging her to long-term later on today. Final antibiotic we will defer, based on culture and sensitivity result, to Urology and ID team. The patient was getting maintenance hemodialysis while in hospital. The patient is seen and examined at bedside today. Please see my progress note from today. Paper work for discharge done. Discharg e medication reconciliation done.
[2017-08-29] MEDS: Calcium Acetate 667 MG CAP PO SCH ×3 (13:32→16:53)
[2017-08-29] MEDS: Aspirin 81 mg Enteric Coated Tablet PO SCH (13:35)
[2017-08-29] MEDS: Folic Acid/Vit B Comp W-C PO SCH (13:37)
[2017-08-29] MEDS: Carvedilol 3.125 MG TAB PO SCH ×2 (13:37→21:00)
[2017-08-29] MEDS: Midodrine HCl 5 MG TAB PO SCH (13:39)
[2017-08-29] MEDS: Heparin 5,000 UNITS/ML VIAL SC SCH ×2 (13:39→21:02)
[2017-08-29] MEDS: Multivitamin W/ Minerals 1 TAB PO SCH (13:40)
[2017-08-29] MEDS: Sacubitril 24.5 MG/Valsartan 25.5 MG TABLET PO SCH ×2 (13:43→21:00)
[2017-08-29] MEDS: Ubidecarenone 50 MG CAP PO SCH (13:44)
[2017-08-29] MEDS ORDERED: GENTAMICIN SULFATE IRR SCH (15:00)
[2017-08-29] MEDS ORDERED: SODIUM CHLORIDE 0.9% IRR SCH (15:00)
[2017-08-29] MEDS: cefTRIAXone\\ROCEPHIN 1 GM, Syringe 0.4 ML in Sterile Water 9.6 ML SLOW IVP SCH (20:58)
[2017-08-30] MEDS: Calcium Acetate 667 MG CAP PO SCH ×3 (08:53→18:50)
[2017-08-30] MEDS: Sacubitril 24.5 MG/Valsartan 25.5 MG TABLET PO SCH ×2 (08:54→20:51)
[2017-08-30] MEDS: Heparin 5,000 UNITS/ML VIAL SC SCH ×2 (08:54→20:52)
[2017-08-30] MEDS: Amoxicillin/Potassium Clav 250 MG TAB PO SCH ×2 (08:54→21:18)
[2017-08-30] MEDS: Folic Acid/Vit B Comp W-C PO SCH (08:54)
[2017-08-30] MEDS: Multivitamin W/ Minerals 1 TAB PO SCH (08:55)
[2017-08-30] MEDS: Carvedilol 3.125 MG TAB PO SCH ×2 (08:55→20:52)
[2017-08-30] MEDS: Ubidecarenone 50 MG CAP PO SCH (08:55)
[2017-08-30] MEDS: Aspirin 81 mg Enteric Coated Tablet PO SCH (08:59)
--- NOTE | 2017-08-30 10:01 | PDOC.PN ---
- Subjective Encounter Start Date: 08/30/17 Encounter Start Time: 07:20 Patient seen and examined. No new complaints. No overnight events - Objective Resuscitation Status: Resuscitation Status FULL:Full Resuscitation MAR Reviewed: Yes Vital Signs & Weight: Vital Signs (12 hours) Temp Pulse Resp BP Pulse Ox 08/30/17 08:00 98.2 F 71 18 115/71 95 Weight Weight 125 lb 0.034 oz I&O: 08/29/17 08/30/17 08/31/17 06:59 06:59 06:59 Intake Total 120 6230 Output Total 100 7610 Balance 20 -1380 Result Diagrams: 08/27/17 03:51 08/27/17 03:51 Phys Exam - Physical Examination Constitutional: NAD HEENT: PERRLA, moist MMs, sclera anicteric Neck: no JVD, supple Respiratory: no wheezing, no rales, no rhonchi Cardiovascular: RRR, no significant murmur, no rub Gastrointestinal: soft, non-tender, no distention, positive bowel sounds Musculoskeletal: no edema, pulses present Neurological: non-focal, normal sensation Lymphatic: no nodes Psychiatric: normal affect Skin: no rash, normal turgor Dx/Plan (1) UTI (urinary tract infection) Status: Acute Comment: due to VRE (2) Elevated troponin Code(s): R74.8 - ABNORMAL LEVELS OF OTHER SERUM ENZYMES Status: Acute Comment: demand ischemia (3) Failure to thrive in adult Status: Acute Comment: due to UTI (4) Hypotension Status: Resolved (5) Anemia of renal disease Code(s): D63.1 - ANEMIA IN CHRONIC KIDNEY DISEASE Status: Chronic (6) CHF (congestive heart failure) Code(s): I50.9 - HEART FAILURE, UNSPECIFIED Status: Chronic Qualifiers: Heart failure type: diastolic Heart failure chronicity: chronic Qualified Code(s): I50.32 - Chronic diastolic (congestive) heart failure (7) ESRD (end stage renal disease) on dialysis Code(s): N18.6 - END STAGE RENAL DISEASE; Z99.2 - DEPENDENCE ON RENAL DIALYSIS Status: Chronic (8) Secondary hyperparathyroidism of renal origin Code(s): N25.81 - SECONDARY HYPERPARATHYROIDISM OF RENAL ORIGIN Status: Chronic - Plan cont current plan of care, plan discussed w/ family, continue antibiotics, child welfare social worker * DC rocephin * start augmentin 250 mg po bid * medication reviewed as below * symptomatic treatment * await placement * discussed with family. Review of Systems - Review of Systems ENT: negative: Ear Pain, Ear Discharge, Nose Pain, Nose Discharge, Nose Congestion, Mouth Pain, Mouth Swelling, Throat Pain, Throat Swelling, Other Respiratory: negative: Cough, Dry, Shortness of Breath, Hemoptysis, SOB with Excertion, Pleuritic Pain, Sputum, Wheezing Cardiovascular: negative: chest pain, palpitations, orthopnea, paroxysmal nocturnal dyspnea, edema, light headedness, other Gastrointestinal: negative: Nausea, Vomiting, Abdominal Pain, Diarrhea, Constipation, Melena, Hematochezia, Other Genitourinary: negative: Dysuria, Frequency, Incontinence, Hematuria, Retention , Other Musculoskeletal: negative: Neck Pain, Shoulder Pain, Arm Pain, Back Pain, Hand Pain, Leg Pain, Foot Pain, Other Skin: negative: Rash, Lesions, Rich, Bruising, Other - Medications/Allergies Allergies/Adverse Reactions: Allergies Allergy/AdvReac Type Severity Reaction Status Date / Time lorazepam [From Ativan] AdvReac Verified 08/26/17 02:10 Medications: Current Medications Acetaminophen (Tylenol) 650 mg PO Q4H PRN PRN Reason: Headache/Fever or Pain Hydrocodone Bitart/Acetaminophen ([place] 5/325) 1 tab PO Q4H PRN PRN Reason: Moderate Pain (4-6) Last Admin: 08/28/17 00:12 Dose: 1 tab Al Hydroxide/Mg Hydroxide (Maalox) 30 ml PO Q6H PRN PRN Reason: Heartburn or Indigestion Amoxicillin/Clavulanate Potassium (Augmentin) 250 mg PO Q12HR [facility] Last Admin: 08/30/17 08:54 Dose: 250 mg Artificial Tears (Tears Naturale) 0 drop EA EYE PRN PRN PRN Reason: Dry Eyes Aspirin (Ecotrin) 81 mg PO DAILY [facility] Last Admin: 08/30/17 08:59 Dose: 81 mg Calcium Acetate (Phoslo) 667 mg PO TID-[facility] Last Admin: 08/30/17 08:53 Dose: 667 mg Carvedilol (Coreg) 1.575 mg PO BID [facility] Last Admin: 08/30/17 08:55 Dose: Not Given Coenzyme Q10 (Coenzyme Q10) 100 mg PO DAILY [facility] Last Admin: 08/30/17 08:55 Dose: 100 mg Guaifenesin (Robitussin Sf) 200 mg PO Q4H PRN PRN Reason: Cough Heparin Sodium (Porcine) (Heparin) 5,000 units SC BID [facility] Last Admin: 08/30/17 08:54 Dose: 5,000 units Hydralazine HCl (Apresoline) 10 mg SLOW IVP Q4H PRN PRN Reason: Systolic BP > 180 Iron/Minerals/Multivitamins (Theragran M) 1 tab PO DAILY [facility] Last Admin: 08/30/17 08:55 Dose: 1 tab Loperamide HCl (Imodium) 2 mg PO PRN PRN PRN Reason: Diarrhea/Loose Stools Loratadine (Claritin) 10 mg PO DAILYPRN PRN PRN Reason: Sinus Symptoms Magnesium Hydroxide (Milk Of Magnesium) 30 ml PO DAILYPRN PRN PRN Reason: Constipation Midodrine (Proamatine) 2.5 mg PO F [facility] Last Admin: 08/29/17 13:39 Dose: 2.5 mg Mineral Oil/White Petrolatum (Eucerin Cream) 0 gm TOP BIDPRN PRN PRN Reason: Dry Skin Nitroglycerin (Nitrostat) 0.4 mg SL Q5MIN PRN PRN Reason: Chest Pain Ondansetron HCl (Zofran Odt) 4 mg PO Q6H PRN PRN Reason: Nausea/Vomiting Ondansetron HCl (Zofran) 4 mg IVP Q6H PRN PRN Reason: Nausea/Vomiting Pantoprazole Sodium (Protonix) 40 mg PO DAILY [facility] Last Admin: 08/30/17 08:55 Dose: 40 mg Phenol (Chloraseptic [place] 180 Ml Bot) 0 ml PO PRN PRN PRN Reason: Sore Throat Sacubitril/Valsartan (Entresto 24.5 Mg-25.5 Mg Tablet) 1 tab PO BID [facility] Last Admin: 08/30/17 08:54 Dose: 1 tab Senna (Senokot) 2 tab PO HSPRN PRN PRN Reason: Constipation Sodium Chloride ([place] Nasal [place] 0.65%) 0 ml EA NARE QIDPRN PRN PRN Reason: Nasal Congestion Sodium Chloride (Flush - Normal Saline) 10 ml IVF Q12HR [facility] Last Admin: 08/30/17 08:56 Dose: 10 ml Sodium Chloride (Flush - Normal Saline) 10 ml IVF PRN PRN PRN Reason: Saline Flush Vitamin B Complex/Vit C/Folic Acid (Nephro-Ernie Tablet) 1 tab PO DAILY [facility] Last Admin: 08/30/17 08:54 Dose: 1 tab Ziprasidone (Geodon) 10 mg IM Q6H PRN PRN Reason: .INCREASED AGGITATION
--- NOTE | 2017-08-30 17:28 | PRG ---
DATE OF SERVICE: 08/30/2017 SUBJECTIVE: Patient was seen and examined at bedside and overnight events noted. Patient denies any shortness of breath or chest pain or palpitation. No history of nausea or vomiting or diarrhea or fever or chills or cramps. OBJECTIVE: General: This is an obese female in no apparent distress. Vital signs: Temperature 98.2, pulse 70, blood pressure 115/71. HEENT: Atraumatic, normocephalic. Oral mucosa is moist. Neck: Supple. Cardiovascular: S1, S2 heard. Rate and rhythm regular. Respiratory: Clear to auscultation. Gastrointestinal: Abdomen is soft. Musculoskeletal: No tenderness. No edema. Dermatologic: No skin rash. Neurologic: Alert and awake and oriented x3. No focal neurologic deficits. Moving all the extremit ies. Psychiatric: Mood and affect normal. LABORATORY DATA: Potassium is 4.2, BUN is 64, creatinine 5.7. ASSESSMENT AND PLAN: 1. End-stage renal disease, on hemodialysis Friday. 2. Edema. 3. Hypertension. 4. Anemia. We will monitor hemoglobin. 5. Continue dialysis on Friday, Friday, and Friday.
--- NOTE | 2017-08-30 18:17 | CT ---
CT ABDOMEN AND PELVIS NONCONTRAST 08/30/17 HISTORY: Bilateral flank pain. COMPARISON: 08/25/17 FINDINGS: Each renal collecting system, ureter, and the urinary bladder are decompressed without stone evident. Lack of contrast limits evaluation for other abnormalities. Heart is partially visualized and is enla rged. Minimal right pleural fluid. Hyperdense stones within the dependent portion of the gallbladder lumen. Prominent calcification throughout the arterial structures. Atrophy of the cortex of each kidn ey. Left renal cyst is stable. Gaseous distention of the rectum. IMPRESSION: 1. No CT evidence of urinary tract obstruction or calcification. 2. New very small right pleural effusion. 3. Atherosclerosis. POS: [facility]
--- NOTE | 2017-08-31 00:26 | EKG ---
Test Reason : Blood Pressure : / mmHG Vent. Rate : 080 BPM Atrial Rate : 040 BPM P-R Int : 000 ms QRS Dur : 152 ms QT Int : 478 ms P-R-T Axes : 000 137 -43 degrees QTc Int : 551 ms Demand pacemaker; interpretation is based on intrinsic rhythm Wide QRS rhythm with Premature supraventricular complexes with occasional , and consecutive Premature ventricular complexes Right bundle branch block T wave abnormality, consider inferior ischemia Abnormal ECG Confirmed by JAVED BRUNO ([id number]), assistant film editor NICOLE URRUTIA ([id number]) on 08/31/2017 12:25:18 AM Referred By: Confirmed By:JAVED BRUNO
[2017-08-31] MEDS: Carvedilol 3.125 MG TAB PO SCH ×2 (08:33→20:55)
[2017-08-31] MEDS: Sacubitril 24.5 MG/Valsartan 25.5 MG TABLET PO SCH ×2 (08:34→20:55)
[2017-08-31] MEDS: Calcium Acetate 667 MG CAP PO SCH ×3 (08:34→16:16)
[2017-08-31] MEDS: Folic Acid/Vit B Comp W-C PO SCH (08:34)
[2017-08-31] MEDS: Multivitamin W/ Minerals 1 TAB PO SCH (08:34)
[2017-08-31] MEDS: Amoxicillin/Potassium Clav 250 MG TAB PO SCH ×2 (08:34→20:55)
[2017-08-31] MEDS: Aspirin 81 mg Enteric Coated Tablet PO SCH (08:34)
[2017-08-31] MEDS: Ubidecarenone 50 MG CAP PO SCH (08:35)
[2017-08-31] MEDS: Heparin 5,000 UNITS/ML VIAL SC SCH ×2 (08:35→20:57)
--- NOTE | 2017-08-31 09:12 | PDOC.PN ---
- Subjective Encounter Start Date: 08/31/17 Encounter Start Time: 07:00 Patient seen and examined. No new complaints. No overnight events - Objective Resuscitation Status: Resuscitation Status FULL:Full Resuscitation MAR Reviewed: Yes Vital Signs & Weight: Weight Weight 125 lb 0.034 oz I&O: 08/30/17 08/31/17 09/01/17 06:59 06:59 06:59 Intake Total 6870 1150 Output Total 7610 Balance -740 1150 Result Diagrams: 08/27/17 03:51 08/27/17 03:51 Radiology Reviewed by me: Yes (CT abdomen-no acute process) Phys Exam - Physical Examination Constitutional: NAD HEENT: PERRLA, moist MMs, sclera anicteric Neck: no JVD, supple Respiratory: no wheezing, no rales, no rhonchi Cardiovascular: RRR, no significant murmur, no rub Gastrointestinal: soft, non-tender, no distention, positive bowel sounds Musculoskeletal: no edema, pulses present Neurological: non-focal, normal sensation Lymphatic: no nodes Psychiatric: normal affect Skin: no rash, normal turgor Dx/Plan (1) UTI (urinary tract infection) Status: Acute Comment: due to VRE (2) Elevated troponin Code(s): R74.8 - ABNORMAL LEVELS OF OTHER SERUM ENZYMES Status: Acute Comment: demand ischemia (3) Failure to thrive in adult Status: Acute Comment: due to UTI (4) Hypotension Status: Resolved (5) Anemia of renal disease Code(s): D63.1 - ANEMIA IN CHRONIC KIDNEY DISEASE Status: Chronic (6) CHF (congestive heart failure) Code(s): I50.9 - HEART FAILURE, UNSPECIFIED Status: Chronic Qualifiers: Heart failure type: diastolic Heart failure chronicity: chronic Qualified Code(s): I50.32 - Chronic diastolic (congestive) heart failure (7) ESRD (end stage renal disease) on dialysis Code(s): N18.6 - END STAGE RENAL DISEASE; Z99.2 - DEPENDENCE ON RENAL DIALYSIS Status: Chronic (8) Secondary hyperparathyroidism of renal origin Code(s): N25.81 - SECONDARY HYPERPARATHYROIDISM OF RENAL ORIGIN Status: Chronic - Plan cont current plan of care, plan discussed w/ family, continue antibiotics, PT/OT , nephrology social worker * continue augmentin * once we have SNU arranged, she is medically stable for discharge * medication reviewed as below * symptomatic treatment * discussed with family. Review of Systems - Review of Systems ENT: negative: Ear Pain, Ear Discharge, Nose Pain, Nose Discharge, Nose Congestion, Mouth Pain, Mouth Swelling, Throat Pain, Throat Swelling, Other Respiratory: negative: Cough, Dry, Shortness of Breath, Hemoptysis, SOB with Excertion, Pleuritic Pain, Sputum, Wheezing Cardiovascular: negative: chest pain, palpitations, orthopnea, paroxysmal nocturnal dyspnea, edema, light headedness, other Gastrointestinal: negative: Nausea, Vomiting, Abdominal Pain, Diarrhea, Constipation, Melena, Hematochezia, Other Genitourinary: negative: Dysuria, Frequency, Incontinence, Hematuria, Retention , Other Musculoskeletal: negative: Neck Pain, Shoulder Pain, Arm Pain, Back Pain, Hand Pain, Leg Pain, Foot Pain, Other Skin: negative: Rash, Lesions, Rich, Bruising, Other - Medications/Allergies Allergies/Adverse Reactions: Allergies Allergy/AdvReac Type Severity Reaction Status Date / Time lorazepam [From Ativan] AdvReac Verified 08/26/17 02:10 Medications: Current Medications Acetaminophen (Tylenol) 650 mg PO Q4H PRN PRN Reason: Headache/Fever or Pain Hydrocodone Bitart/Acetaminophen ([place] 5/325) 1 tab PO Q4H PRN PRN Reason: Moderate Pain (4-6) Last Admin: 08/28/17 00:12 Dose: 1 tab Al Hydroxide/Mg Hydroxide (Maalox) 30 ml PO Q6H PRN PRN Reason: Heartburn or Indigestion Amoxicillin/Clavulanate Potassium (Augmentin) 250 mg PO Q12HR [facility]ENDING [facility] TO [facility] Last Admin: 08/31/17 08:34 Dose: 250 mg Artificial Tears (Tears Naturale) 0 drop EA EYE PRN PRN PRN Reason: Dry Eyes Aspirin (Ecotrin) 81 mg PO DAILY [facility] Last Admin: 08/31/17 08:34 Dose: 81 mg Calcium Acetate (Phoslo) 667 mg PO TID-[facility] Last Admin: 08/31/17 08:34 Dose: 667 mg Carvedilol (Coreg) 1.575 mg PO BID [facility] Last Admin: 08/31/17 08:33 Dose: 1.575 mg Coenzyme Q10 (Coenzyme Q10) 100 mg PO DAILY [facility] Last Admin: 04/08/18 08:35 Dose: 100 mg Guaifenesin (Robitussin Sf) 200 mg PO Q4H PRN PRN Reason: Cough Heparin Sodium (Porcine) (Heparin) 5,000 units SC BID [facility] Last Admin: 08/31/17 08:35 Dose: 5,000 units Hydralazine HCl (Apresoline) 10 mg SLOW IVP Q4H PRN PRN Reason: Systolic BP > 180 Iron/Minerals/Multivitamins (Theragran M) 1 tab PO DAILY [facility] Last Admin: 08/31/17 08:34 Dose: 1 tab Loperamide HCl (Imodium) 2 mg PO PRN PRN PRN Reason: Diarrhea/Loose Stools Loratadine (Claritin) 10 mg PO DAILYPRN PRN PRN Reason: Sinus Symptoms Magnesium Hydroxide (Milk Of Magnesium) 30 ml PO DAILYPRN PRN PRN Reason: Constipation Midodrine (Proamatine) 2.5 mg PO MoWeFr@0900 PENDING [facility] Mineral Oil/White Petrolatum (Eucerin Cream) 0 gm TOP BIDPRN PRN PRN Reason: Dry Skin Nitroglycerin (Nitrostat) 0.4 mg SL Q5MIN PRN PRN Reason: Chest Pain Ondansetron HCl (Zofran Odt) 4 mg PO Q6H PRN PRN Reason: Nausea/Vomiting Ondansetron HCl (Zofran) 4 mg IVP Q6H PRN PRN Reason: Nausea/Vomiting Pantoprazole Sodium (Protonix) 40 mg PO DAILY [facility] Last Admin: 08/31/17 08:34 Dose: 40 mg Phenol (Chloraseptic [place] 180 Ml Bot) 0 ml PO PRN PRN PRN Reason: Sore Throat Sacubitril/Valsartan (Entresto 24.5 Mg-25.5 Mg Tablet) 1 tab PO BID [facility] Last Admin: 08/31/17 08:34 Dose: 1 tab Senna (Senokot) 2 tab PO HSPRN PRN PRN Reason: Constipation Sodium Chloride ([place] Nasal [place] 0.65%) 0 ml EA NARE QIDPRN PRN PRN Reason: Nasal Congestion Sodium Chloride (Flush - Normal Saline) 10 ml IVF Q12HR PENDING [facility] Last Admin: 08/31/17 08:35 Dose: 10 ml Sodium Chloride (Flush - Normal Saline) 10 ml IVF PRN PRN PRN Reason: Saline Flush Vitamin B Complex/Vit C/Folic Acid (Nephro-Ernie Tablet) 1 tab PO DAILY JOAQUIN Last Admin: 08/31/17 08:34 Dose: 1 tab Ziprasidone (Geodon) 10 mg IM Q6H PRN PRN Reason: .INCREASED AGGITATION
--- NOTE | 2017-08-31 16:26 | PRG ---
DATE OF SERVICE: 08/31/2017 SUBJECTIVE: Patient was seen and examined at bedside and overnight events noted. Patient denies any shortness of breath or chest pain or palpitation. No history of nausea or vomiting or diarrhea or f ever or chills or cramps. OBJECTIVE: GENERAL: This is a well-built female, in no acute distress. VITAL SIGNS: Temperature 98.2, pulse 69, respiratory rate 18, blood pressure 136/76. HEENT: Atraumatic, normocephalic. Oral mucosa is moist. NECK: Supple. CARDIOVASCULAR: S1, S2 heard, rate and rhythm regular. RESPIRATORY: Clear to auscultation. GASTROINTESTINAL: Abdomen is soft. MUSCULOSKELETAL: No tenderness, no edema. DERMATOLOGIC: No skin rash. NEUROLOGIC: Alert and awake and oriented x3. No focal neurologic deficits. Moving all the extremit ies. PSYCHIATRIC: Mood and affect normal. LABORATORY DATA: Not done today. ASSESSMENT AND PLAN: 1. End-stage renal disease. Currently on dialysis Friday, Friday, and Friday. 2. Edema. 3. Hypertension. 4. Anemia. Monitor hemoglobin. We will continue dialysis Friday, Friday, and Friday.
[2017-08-31 21:41] VITALS: BP 133/56; TEMP 97.6
[2017-09-01] MEDS: Aspirin 81 mg Enteric Coated Tablet PO SCH (07:29)
[2017-09-01] MEDS: Calcium Acetate 667 MG CAP PO SCH ×2 (07:29→12:14)
[2017-09-01] MEDS: Sacubitril 24.5 MG/Valsartan 25.5 MG TABLET PO SCH (07:29)
[2017-09-01] MEDS: Folic Acid/Vit B Comp W-C PO SCH (07:29)
[2017-09-01] MEDS: Carvedilol 3.125 MG TAB PO SCH (07:31)
[2017-09-01] MEDS: Heparin 5,000 UNITS/ML VIAL SC SCH (07:31)
[2017-09-01] MEDS: Multivitamin W/ Minerals 1 TAB PO SCH (07:32)
[2017-09-01] MEDS: Amoxicillin/Potassium Clav 250 MG TAB PO SCH (07:32)
[2017-09-01] MEDS: Ubidecarenone 50 MG CAP PO SCH (07:33)
[2017-09-01] MEDS ORDERED: Midodrine HCl 5 MG TAB PO SCH (09:00)
--- NOTE | 2017-09-01 09:00 | CON ---
DATE OF CONSULTATION: 08/30/2017 REASON FOR CONSULTATION: Weakness, confusional state with possible invasive UTI. HISTORY OF PRESENT ILLNESS: She is a 77-year-old who has a history of type 2 diabetes, hypertension, end-stage renal disease on hemodialysis through an AV fistula, and cardiomyopathy, who has a history of cystitis treated by Dr. Odonnell urologist in the [facility]. Apparently, family brought the patient for evaluation and their main concern was that she was having those mental status changes and feeling weak. She did not have much in terms of urinary output. I believe, patient had an in and out catheterization to obtain a specimen. The findings indicated presence of cystitis with greater than 50 wbc's. The first specimen was in 12/2014. She had another specimen in 01/2015 and then on April and May this year. Patient has been managed with both systemic antimicrobial therapy and irrigation of the bladder. The urine cultures have revealed Klebsiella pneumonia in 07/2014. An Enterococcus species in 01/2015 this was a quite sensitive strain and has had negative urine culture in 12/2014 and 04/2017. Negative urine culture 05/2017 and negative urine culture, 06/24/2017. She was eventually brought in because of loss of appetite, generalized weakness for the past 3-4 days. There was reported subjective fever, which was not checked. No headaches, no change in visual symptoms, sore throat, odynophagia, dysphagia, no chest pain, no dyspnea, no abdominal pain, no genitourinary symptoms. PAST MEDICAL HISTORY: Cardiomyopathy, type 2 diabetes, hypertension, end-stage renal disease on hemodialysis on AV fistula, history of cystitis treated with irrigation and systemic antimicrobial therapy in the past. Fractured left humerus, which is being managed conservatively. FAMILY HISTORY: Noncontributory. SOCIAL HISTORY: Never smoker. CURRENT MEDICATIONS: Tylenol, Wann, Maalox, Augmentin, Ecotrin, PhosLo, Coreg , Robitussin, heparin, Imodium, Claritin, ProAmatine, pantoprazole, Entresto, and Geodon. ALLERGY HISTORY: LORAZEPAM. PHYSICAL EXAMINATION: VITAL SIGNS: T-max 98.3, blood pressure 115/71, pulse 71, respirations 18, O2 sat 95%. SKIN: Shows the functioning AV fistula in the left upper extremity. No lymphadenopathy. HEENT: Ocular movements conjugate. Oral cavity with only few remaining teeth. NECK: No jugular vein distention. LUNGS: Symmetric air entry without crackles or wheezing. HEART: S1, S2 with regular rate. ABDOMEN: Soft, nondistended, no ascites. No bladder distention or organomegaly. EXTREMITIES: No joint inflammatory activity. Osteoarthrosis. Pulses are diminished in dorsalis pedis. She moves extremities equally. NEUROLOGIC: Cognitive function is intact. LABORATORY DATA: White cell count is 4.5 and now 4.7, hemoglobin 12, platelets 130 with normal differential. Chemistry with the expected findings. Liver profile normal. Albumin 3.4. Urinalysis with 21-50 wbc's. Microbiology with Enterococcus species. Enterococcus is susceptible to amoxicillin. ASSESSMENT: End-stage renal disease, diabetes mellitus type 2, hemodialysis through an arteriovenous fistula, changes in mental status, and decreased oral intake and abnormalities noted in the urinalysis/urine cultures. DISCUSSION: There is no strong clinical evidence to suggest that the findings in the bladder and urinary tract are associated with systemic symptoms. We will obtain CT stone protocol to complete the workup. I would not recommend treating the findings in the bladder and in the absence of symptoms other than the nonspecific mental status changes, anorexia, which are more likely secondary to an alternate process. MTDD
--- NOTE | 2017-09-01 09:32 | PDOC.PN ---
- Subjective Encounter Start Date: 09/01/17 Encounter Start Time: 07:40 Patient seen and examined. No new complaints. No overnight events - Objective Resuscitation Status: Resuscitation Status FULL:Full Resuscitation MAR Reviewed: Yes Vital Signs & Weight: Vital Signs (12 hours) Temp Pulse Resp 09/01/17 07:45 97.6 F 72 18 Weight Weight 145 lb 12.8 oz I&O: 08/31/17 09/01/17 09/02/17 06:59 06:59 06:59 Intake Total 1150 240 Balance 1150 240 Result Diagrams: 08/27/17 03:51 08/27/17 03:51 Phys Exam - Physical Examination Constitutional: NAD HEENT: PERRLA, moist MMs, sclera anicteric Neck: no JVD, supple Respiratory: no wheezing, no rales, no rhonchi Cardiovascular: RRR, no significant murmur, no rub Gastrointestinal: soft, non-tender, no distention, positive bowel sounds Musculoskeletal: no edema, pulses present Neurological: non-focal, normal sensation Lymphatic: no nodes Psychiatric: normal affect Skin: no rash, normal turgor Dx/Plan (1) UTI (urinary tract infection) Status: Acute Comment: due to VRE (2) Elevated troponin Code(s): R74.8 - ABNORMAL LEVELS OF OTHER SERUM ENZYMES Status: Acute Comment: demand ischemia (3) Failure to thrive in adult Status: Acute Comment: due to UTI (4) Hypotension Status: Resolved (5) Anemia of renal disease Code(s): D63.1 - ANEMIA IN CHRONIC KIDNEY DISEASE Status: Chronic (6) CHF (congestive heart failure) Code(s): I50.9 - HEART FAILURE, UNSPECIFIED Status: Chronic Qualifiers: Heart failure type: diastolic Heart failure chronicity: chronic Qualified Code(s): I50.32 - Chronic diastolic (congestive) heart failure (7) ESRD (end stage renal disease) on dialysis Code(s): N18.6 - END STAGE RENAL DISEASE; Z99.2 - DEPENDENCE ON RENAL DIALYSIS Status: Chronic (8) Secondary hyperparathyroidism of renal origin Code(s): N25.81 - SECONDARY HYPERPARATHYROIDISM OF RENAL ORIGIN Status: Chronic - Plan cont current plan of care, plan discussed w/ family, continue antibiotics, PT/OT , group social worker * medication reviewed as below * symptomatic treatment * stable for discharge to SNU when placement arranged * see discharge summery already dictated Review of Systems - Review of Systems Constitutional: negative: fever, chills, sweats, weakness, malaise, other Respiratory: negative: Cough, Dry, Shortness of Breath, Hemoptysis, SOB with Excertion, Pleuritic Pain, Sputum, Wheezing Cardiovascular: negative: chest pain, palpitations, orthopnea, paroxysmal nocturnal dyspnea, edema, light headedness, other Gastrointestinal: negative: Nausea, Vomiting, Abdominal Pain, Diarrhea, Constipation, Melena, Hematochezia, Other Genitourinary: negative: Dysuria, Frequency, Incontinence, Hematuria, Retention , Other Musculoskeletal: negative: Neck Pain, Shoulder Pain, Arm Pain, Back Pain, Hand Pain, Leg Pain, Foot Pain, Other Skin: negative: Rash, Lesions, Rich, Bruising, Other - Medications/Allergies Allergies/Adverse Reactions: Allergies Allergy/AdvReac Type Severity Reaction Status Date / Time lorazepam [From Ativan] AdvReac Verified 08/26/17 02:10 Medications: Current Medications Acetaminophen (Tylenol) 650 mg PO Q4H PRN PRN Reason: Headache/Fever or Pain Hydrocodone Bitart/Acetaminophen ([place] 5/325) 1 tab PO Q4H PRN PRN Reason: Moderate Pain (4-6) Last Admin: 08/28/17 00:12 Dose: 1 tab Al Hydroxide/Mg Hydroxide (Maalox) 30 ml PO Q6H PRN PRN Reason: Heartburn or Indigestion Amoxicillin/Clavulanate Potassium (Augmentin) 250 mg PO Q12HR [facility] Last Admin: 09/01/17 07:32 Dose: 250 mg Artificial Tears (Tears Naturale) 0 drop EA EYE PRN PRN PRN Reason: Dry Eyes Aspirin (Ecotrin) 81 mg PO DAILY [facility] Last Admin: 09/01/17 07:29 Dose: 81 mg Calcium Acetate (Phoslo) 667 mg PO TID-WM [facility] Last Admin: 09/01/17 07:29 Dose: 667 mg Carvedilol (Coreg) 1.575 mg PO BID [facility] Last Admin: 09/01/17 07:31 Dose: 1.575 mg Coenzyme Q10 (Coenzyme Q10) 100 mg PO DAILY [facility] Last Admin: 09/01/17 07:33 Dose: 100 mg Guaifenesin (Robitussin Sf) 200 mg PO Q4H PRN PRN Reason: Cough Heparin Sodium (Porcine) (Heparin) 5,000 units SC BID [facility] Last Admin: 09/01/17 07:31 Dose: 5,000 units Hydralazine HCl (Apresoline) 10 mg SLOW IVP Q4H PRN PRN Reason: Systolic BP > 180 Iron/Minerals/Multivitamins (Theragran M) 1 tab PO DAILY [facility] Last Admin: 09/01/17 07:32 Dose: 1 tab Loperamide HCl (Imodium) 2 mg PO PRN PRN PRN Reason: Diarrhea/Loose Stools Loratadine (Claritin) 10 mg PO DAILYPRN PRN PRN Reason: Sinus Symptoms Magnesium Hydroxide (Milk Of Magnesium) 30 ml PO DAILYPRN PRN PRN Reason: Constipation Midodrine (Proamatine) 2.5 mg PO MoWeFr@0900 [facility] Last Admin: 09/01/17 07:29 Dose: 2.5 mg Mineral Oil/White Petrolatum (Eucerin Cream) 0 gm TOP BIDPRN PRN PRN Reason: Dry Skin Nitroglycerin (Nitrostat) 0.4 mg SL Q5MIN PRN PRN Reason: Chest Pain Ondansetron HCl (Zofran Odt) 4 mg PO Q6H PRN PRN Reason: Nausea/Vomiting Ondansetron HCl (Zofran) 4 mg IVP Q6H PRN PRN Reason: Nausea/Vomiting Pantoprazole Sodium (Protonix) 40 mg PO DAILY [facility] Last Admin: 09/01/17 07:32 Dose: 40 mg Phenol (Chloraseptic [place] 180 Ml Bot) 0 ml PO PRN PRN PRN Reason: Sore Throat Sacubitril/Valsartan (Entresto 24.5 Mg-25.5 Mg Tablet) 1 tab PO BID [facility] Last Admin: 09/01/17 07:29 Dose: 1 tab Senna (Senokot) 2 tab PO HSPRN PRN PRN Reason: Constipation Sodium Chloride ([place] Nasal [place] 0.65%) 0 ml EA NARE QIDPRN PRN PRN Reason: Nasal Congestion Sodium Chloride (Flush - Normal Saline) 10 ml IVF Q12HR [facility] Last Admin: 09/01/17 07:34 Dose: Not Given Sodium Chloride (Flush - Normal Saline) 10 ml IVF PRN PRN PRN Reason: Saline Flush Vitamin B Complex/Vit C/Folic Acid (Nephro-Ernie Tablet) 1 tab PO DAILY [facility]QUIN Last Admin: 09/01/17 07:29 Dose: 1 tab Ziprasidone (Geodon) 10 mg IM Q6H PRN PRN Reason: .INCREASED AGGITATION
--- NOTE | 2017-09-01 11:56 | PRG ---
DATE OF SERVICE: 09/01/2017 SUBJECTIVE: A 77-year-old female being seen for end-stage renal disease. The patient denies any edy sea, vomiting or chest pain. PHYSICAL EXAMINATION: GENERAL: Patient is awake, alert. VITAL SIGNS: Afebrile, pulse 72, breathing 16, blood pressure 133/66. HEAD/NECK: Normocephalic. Atraumatic. EYES: EOMI. No deformity. EARS: Clear. No ulcers. NOSE: Intact. No lesions. MOUTH: Clear. No discharge. THROAT: Clear. No exudate. LUNGS: Clear. No crackles. CARDIAC: S1, S2. No rub. ABDOMEN: Benign. BS+. GENITALIA/RECTUM: Hernandez absent. BACK/EXTREMITIES: Edema 0+ Ulcer- NEUROLOGICAL: Alert and motor intact. SKIN: Rash- Bruise- LYMPHATICS: Edema- Ulcer- LABORATORY DATA: Show hemoglobin 12.2. ASSESSMENT AND RECOMMENDATIONS: 1. Stage 6 chronic kidney disease, continue hemodialysis. 2. Hypertension, stable. 3. Anemia, stable. 4. Medications based on glomerular filtration rate are appropriate.
== END 2017-09-01 13:34 | DRG 689 ==
LOC: ERS 18:41 → T4-B 23:29
PROVIDERS: ADMIT Internal Medicine Infectious Disease; ATTEND Internal Medicine Infectious Disease
PROC: 5A1D70Z Performance of Urinary Filtration, Intermittent, Less than 6 Hours Per Day (ICD-10-PCS; principal; 2017-08-27)
PROC: 5A1D70Z Performance of Urinary Filtration, Intermittent, Less than 6 Hours Per Day (ICD-10-PCS; 2017-08-29)
PROC: 5A1D70Z Performance of Urinary Filtration, Intermittent, Less than 6 Hours Per Day (ICD-10-PCS; 2017-09-01)
DX: N39.0 Urinary tract infection, site not specified (principal); N18.6 End stage renal disease; I13.2 Hypertensive heart and chronic kidney disease with heart failure and with stage 5 chronic kidney disease, or end stage renal disease; G93.40 Encephalopathy, unspecified; I24.8 Other forms of acute ischemic heart disease; I42.9 Cardiomyopathy, unspecified; N25.81 Secondary hyperparathyroidism of renal origin; I50.32 Chronic diastolic (congestive) heart failure; E11.22 Type 2 diabetes mellitus with diabetic chronic kidney disease; R62.7 Adult failure to thrive; I95.1 Orthostatic hypotension; F03.90 Unspecified dementia, unspecified severity, without behavioral disturbance, psychotic disturbance, mood disturbance, and anxiety; E87.6 Hypokalemia; B95.2 Enterococcus as the cause of diseases classified elsewhere; Z99.2 Dependence on renal dialysis; Z16.21 Resistance to vancomycin; Z88.8 Allergy status to other drugs, medicaments and biological substances; Z79.82 Long term (current) use of aspirin; Z79.899 Other long term (current) drug therapy; Z95.810 Presence of automatic (implantable) cardiac defibrillator
CPT/HCPCS: 36415; 36416; 51701; 52000; 71045; 74176; 80053; 80069; 81003; 81015; 82553; 83735; 84484; 85025; 87077; 87086; 87186; 90935; 93005; 93306; 96374; 99213; A4216; G0257; G0463; G8978-GP-CK; G8979-GP-CK; G8980-GP-CK; G8987-GO-CK; G8988-GO-CJ; J0290; J0696; J1580; J1644; J7050; Q0162

== ENCOUNTER 2018-01-15 19:22 | Emergency (ER) | payer MEDICARE, MEDICAID ==
[2018-01-15 20:00] LABS: Bilirubin Negative (Negative); Blood, Urine Large (Negative); Glucose, Urine (Dipstick) Negative (Negative); Leukocyte Large (Negative); Nitrite Negative (Negative); Protein, Urine (Dipstick) > or equal to 300 mg/dL (Neg-Trace); Urobilinogen 0.2 mg/dL (0.2-1.0)
[2018-01-15 20:01] LABS: Clarity Cloudy (Clear); Specific Gravity, Urine 1.028 (1.002-1.036)
[2018-01-15 20:05] LABS: #Basophils 0.1 thou/uL (0.0-0.2); #Eosinphils 0.3 thou/uL (0.0-0.7); #Lymphocytes 1.1 thou/uL (1.20-3.40); #Monocytes 0.8 thou/uL (0.11-0.59); #Neutrophils 3.5 thou/uL (1.40-6.50); %Basophils 1.2 % (0.0-1.0); %Eosinophils 4.6 % (0.0-10.0); %Lymphocytes 18.6 % (21.0-51.0); %Monocytes 13.8 % (0.0-10.0); %Neutrophils 61.8 % (42.0-75.0); Hemoglobin 10.2 g/dL (12.0-16.0); Mean Corpuscular Hemoglobin 30.2 pg (27.0-31.0); Mean Corpuscular Volume 88.7 fL (78.0-98.0); Mean Platelet Volume 7.4 fL (7.4-10.4); Platelet Count 191 thou/uL (130-400); RBC Distribution Width 12.7 % (11.5-14.5); Red Blood Cell (RBC) Count 3.37 mill/uL (4.20-5.40); White Blood Cell (WBC) Count 5.7 thou/uL (4.8-10.8)
[2018-01-15 20:14] LABS: Bacteria/HPF 4+ HPF (None Seen); Squamous Epithelial 0-3 HPF (0-3)
[2018-01-15 20:15] LABS: ALT (SGPT) 8 U/L (8-55); AST (SGOT) 16 U/L (5-34); Albumin 3.2 g/dL (3.4-4.8); Alkaline Phosphatase 129 U/L (40-150); Anion Gap 16 mmol/L (10-20); BUN (Urea Nitrogen) 23 mg/dL (9.8-20.1); Bilirubin, Total 0.5 mg/dL (0.2-1.2); Calc. Creatinine Clearance 0 mL/min (70-130); Calcium 8.9 mg/dL (7.8-10.44); Carbon Dioxide 25 mmol/L (23-31); Chloride 95 mmol/L (98-107); Estimated GFR-MDRD 11; Globulin 3.4 g/dL (2.4-3.5); Glucose 187 mg/dL (83-110); Lipase 11 U/L (8-78); Potassium 3.5 mmol/L (3.5-5.1); Protein, Total 6.6 g/dL (6.0-8.3); Sodium 132 mmol/L (136-145)
[2018-01-15] MEDS ORDERED: cefTRIAXone\\ROCEPHIN 1 GM VIAL ONE (20:42)
[2018-01-15] MEDS ORDERED: Sodium Chloride 0.9% 100 ML ONE (20:42)
[2018-01-15 23:57] LABS: Lactic Acid 0.9 mmol/L (0.5-2.2)
== END 2018-01-16 00:39 | disposition home or self-care (01) ==
LOC: SCSER 19:22
DX: N30.00 Acute cystitis without hematuria (principal); D64.9 Anemia, unspecified; I13.2 Hypertensive heart and chronic kidney disease with heart failure and with stage 5 chronic kidney disease, or end stage renal disease; I50.9 Heart failure, unspecified; Z79.899 Other long term (current) drug therapy; Z79.82 Long term (current) use of aspirin; N18.9 Chronic kidney disease, unspecified
CPT/HCPCS: 36415; 51701; 80053; 81003; 81015; 83605; 83690; 85025; 87077; 87086; 87186; 96365; A4353; J0696; J7050

== ENCOUNTER 2018-02-20 05:13 | Emergency (ER) | payer MEDICARE, MEDICAID | END 2018-02-20 06:53 | disposition home or self-care (01) | LOC: ERS 05:13 | DX: F03.90 Unspecified dementia, unspecified severity, without behavioral disturbance, psychotic disturbance, mood disturbance, and anxiety (principal); G47.00 Insomnia, unspecified; E11.22 Type 2 diabetes mellitus with diabetic chronic kidney disease; I11.0 Hypertensive heart disease with heart failure; I50.9 Heart failure, unspecified; F41.9 Anxiety disorder, unspecified; Z79.82 Long term (current) use of aspirin; Z79.899 Other long term (current) drug therapy; Z79.891 Long term (current) use of opiate analgesic | CPT/HCPCS: 99283 ==

== ENCOUNTER 2018-04-27 09:31 | Inpatient (IN) | payer MEDICARE, MEDICAID ==
--- NOTE | 2018-04-27 10:27 | RAD ---
SINGLE VIEW OF THE CHEST: COMPARISON: 08/25/2017. HISTORY: Worsening confusion over the last few days. Altered mental status. Dementia and Alzheimer's disease. FINDINGS: A single view of the chest shows an enlarged but stable cardiomediastinal silhouette. The pacemaker is unchanged in position. There is a right-sided pleural effusion. Adjacent atelectasis versus infi ltrate is seen. IMPRESSION: 1. Right pleural effusion with adjacent atelectasis versus infiltrate. 2. Cardiomegaly. POS: JUAN C
[2018-04-27 10:44] LABS: #Eosinphils 0.3 thou/uL (0.0-0.7); #Lymphocytes 1.1 thou/uL (1.20-3.40); #Monocytes 0.5 thou/uL (0.11-0.59); #Neutrophils 4.2 thou/uL (1.40-6.50); %Basophils 0.3 % (0.0-1.0); %Eosinophils 4.2 % (0.0-10.0); %Lymphocytes 18.3 % (21.0-51.0); %Monocytes 8.9 % (0.0-10.0); %Neutrophils 68.4 % (42.0-75.0); Hemoglobin 10.6 g/dL (12.0-16.0); Mean Corpuscular HGB CONC 31.6 g/dL (32.0-36.0); Mean Corpuscular Hemoglobin 29.6 pg (27.0-31.0); Mean Corpuscular Volume 93.8 fL (78.0-98.0); Mean Platelet Volume 7.7 fL (7.4-10.4); Platelet Count 193 thou/uL (130-400); RBC Distribution Width 14.2 % (11.5-14.5); Red Blood Cell (RBC) Count 3.59 mill/uL (4.20-5.40); White Blood Cell (WBC) Count 6.1 thou/uL (4.8-10.8)
[2018-04-27 11:14] LABS: ALT (SGPT) 7 U/L (8-55); AST (SGOT) 22 U/L (5-34); Albumin 3.4 g/dL (3.4-4.8); Alkaline Phosphatase 108 U/L (40-150); Anion Gap 19 mmol/L (10-20); BUN (Urea Nitrogen) 31 mg/dL (9.8-20.1); Bilirubin, Total 0.6 mg/dL (0.2-1.2); Calc. Creatinine Clearance 0 mL/min (70-130); Calcium 8.9 mg/dL (7.8-10.44); Carbon Dioxide 26 mmol/L (23-31); Chloride 96 mmol/L (98-107); Estimated GFR-MDRD 9; Globulin 3.2 g/dL (2.4-3.5); Glucose 125 mg/dL (83-110); Potassium 3.7 mmol/L (3.5-5.1); Protein, Total 6.6 g/dL (6.0-8.3); Sodium 137 mmol/L (136-145)
[2018-04-27 11:28] LABS: Bilirubin Small (Negative); Blood, Urine Moderate (Negative); Clarity TURBID (Clear); Glucose, Urine (Dipstick) Negative (Negative); Leukocyte Large (Negative); Nitrite Negative (Negative); Protein, Urine (Dipstick) 100 mg/dL (Neg-Trace); Specific Gravity, Urine 1.013 (1.002-1.036); Urobilinogen 0.2 mg/dL (0.2-1.0)
[2018-04-27 11:31] LABS: Bacteria/HPF None Seen HPF (None Seen); Hyaline Casts/LPF 0-3 HYALINE CAST LPF (0-3 Hyaline); Pathc Cast-AUWi Flag 0.22 (0-2.49); Squamous Epithelial 0-3 HPF (0-3)
[2018-04-27 11:34] LABS: Yeast-AUWi Flag 942.2 (0-25.0)
[2018-04-27 11:43] LABS: Crystals/HPF 2+ AMORPH PHOS HPF (Negative); Yeast-All Forms None Seen HPF (None Seen)
[2018-04-27] MEDS ORDERED: cefTRIAXone\\ROCEPHIN 1 GM VIAL ONE (12:22)
[2018-04-27] MEDS ORDERED: Sodium Chloride 0.9% 100 ML ONE (12:24)
[2018-04-27 12:59] LABS: Troponin I 0.079 ng/mL (< 0.028)
[2018-04-27 13:04] LABS: CK (CPK) 43 U/L (29-168)
[2018-04-27] MEDS ORDERED: Senokot S 8.6-50 MG TAB PO PRN (14:56)
[2018-04-27] MEDS ORDERED: Acetaminophen 325 MG TAB PO PRN (14:56)
[2018-04-27] MEDS ORDERED: Guaifenesin DM 100-10/5 ML UDCUP PO PRN (14:56)
[2018-04-27 15:10] LABS: Lactic Acid 1.2 mmol/L (0.5-2.2)
[2018-04-27 16:01] LABS: HBSAg Index 0.23 S/CO (0-0.99); Hep B Surf Ag Non-Reactive S/CO (NonReactive)
--- NOTE | 2018-04-27 16:49 | HP ---
REASON FOR ADMISSION: Volume overload, acute encephalopathy, right pleural effusion, CHF exacerbation. HISTORY OF PRESENTING ILLNESS: Please note, majority of this history is obtained by talking to the patient's daughter, who is here at bedside and caregiver. She apparently has not been sleeping well for the last one week. She is also talking excessively and not making sense. She is eating less. She normally ambulates with a walker minimally in the house, but has not been able to do so from last day and a half now. Also her behaviour was odd with patient exposing her inner pants and upper torso which was very unsual per caregiver. No complaints of fever. Has had some occasional cough. No complaints of chest pain, palpitations, or PND. The patient follows up with Dr. Mccabe and the caregiver says that she has heart failure. PAST MEDICAL AND SURGICAL HISTORY: History of end-stage renal disease, on hemodialysis on Friday, Friday, Fridays. She has been on hemodialysis for last 6 years. Hypotension with dialysis and takes midodrine for the same, has dementia , prior history of CVA with no residual paralysis per family, history of CHF with systolic dysfunction per family, prior pacemaker, dialysis access procedures on the right upper extremity, cholecystectomy, hysterectomy, and left knee replacement. CURRENT MEDICATIONS: 1. Entresto 12/13 mg twice daily. 2. Half of 3.125 mg Coreg twice daily. 3. Calcium acetate 667 mg p.o. three times daily. 4. Aspirin 81 mg p.o. daily. 5. Midodrine 2.5 mg on Friday, Friday, and Friday that is dialysis days. 6. CoQ10 of 100 mg p.o. daily. 7. Vitamin D3 1000 units p.o. daily. 8. Pepcid 20 mg daily. ALLERGIES: TO LORAZEPAM. PERSONAL HISTORY: Does not abuse alcohol or drugs. No history of smoking. FAMILY HISTORY: Mother in her 60s. She had head injury. Father of massive CVA in his 60s. CODE STATUS: DNR. This was discussed with the patient's daughter, Ms. Lainey Watkins, who is also the power of ip technology transactions attorney for the patient. REVIEW OF SYSTEMS: Cannot be obtained as the patient is not fully oriented. PHYSICAL EXAMINATION: GENERAL: The patient is a 78-year-old female, who is currently not in any acute distress. VITAL SIGNS: Blood pressure 145/70, pulse 70 per minute, respiratory rate 22 per minute, temperature 97.4 degrees Fahrenheit, and saturating 100% on room air. NECK: Supple. There is elevated JVD. HEENT: Eyes; extraocular muscles intact. Pupils reacting to light. Oral cavity, mucous membranes are moist. No exudates or congestion. CARDIOVASCULAR SYSTEM: S1 and S2 heard, S3 plus. RESPIRATORY SYSTEM: Air entry is decreased in the right infrascapular area. No wheezes heard. Rales plus bilateral. ABDOMEN: Soft. Bowel sounds heard. No tenderness, rigidity, or guarding. EXTREMITIES: No peripheral edema or calf tenderness. VASCULAR SYSTEM: Peripheral pulses 1+ bilateral. No ischemic ulcerations or gangrene. CENTRAL NERVOUS SYSTEM: The patient is not fully oriented, but moves all four extremities. The patient does not move much of her right upper and lower extremity, which has been chronically present per family at bedside. PSYCHIATRIC SYSTEM: No obvious hallucinations or delusions. LABORATORY DATA: White count of 6, hemoglobin and hematocrit of 10 and 33, platelet count 193, MCV is 93 with 68% neutrophils. Electrolytes stable. BUN 31, creatinine 4.9, serum glucose 125. Lactic acid 2.3. Liver enzymes within normal limits. Troponin I 0.07, CK-MB 2.0. BNP 7021. UA shows large leukocyte esterase, greater than 50 wbc's, no bacteria seen. DIAGNOSTIC DATA: Chest x-ray done shows large right pleural effusion with cardiomegaly. EKG is being done. We will follow up on the same. CLINICAL IMPRESSION AND PLAN: The patient will be admitted to telemetry for acute CHF exacerbation with right pleural effusion. She also has acute encephalopathy. Santos cultures will be obtained including Blood and urine if she can provide one. The patient does not make much urine as she is on dialysis. Likely, her UA is consistent with possible colonization. I have spoken to Dr. Pandey for possible right-sided thoracentesis. Today is her dialysis day and I have spoken to Dr. Medina for hemodialysis. She will be on aspirin and Coreg. I will also continue her Entresto as before. She will get her midodrine 2.5 mg before dialysis for hypotension. I have discussed code status with the patient's POA and daughter, Ms. Lainey Watkins and she wants her to be do not resuscitate. Echo with 2D Doppler will be requested for LV function. The patient has had prior echo done here in the month of August, which showed ejection fraction of 50% to 55%. Per family, the patient is having low ejection fraction. We will confirm the same with a repeat echo Job ID: [id number] MTDD
[2018-04-27] MEDS: Calcium Acetate 667 MG CAP PO SCH (23:07)
[2018-04-27] MEDS: Carvedilol 3.125 MG TAB PO SCH (23:19)
[2018-04-27] MEDS: Sacubitril 24.5 MG/Valsartan 25.5 MG TABLET PO SCH (23:21)
[2018-04-28 06:23] LABS: #Eosinphils 0.3 thou/uL (0.0-0.7); #Lymphocytes 1.2 thou/uL (1.20-3.40); #Monocytes 0.7 thou/uL (0.11-0.59); #Neutrophils 2.6 thou/uL (1.40-6.50); %Basophils 0.2 % (0.0-1.0); %Eosinophils 5.9 % (0.0-10.0); %Lymphocytes 24.7 % (21.0-51.0); %Neutrophils 55.1 % (42.0-75.0); Hemoglobin 10.5 g/dL (12.0-16.0); Mean Corpuscular HGB CONC 31.9 g/dL (32.0-36.0); Mean Corpuscular Volume 93.9 fL (78.0-98.0); Mean Platelet Volume 7.6 fL (7.4-10.4); Platelet Count 184 thou/uL (130-400); RBC Distribution Width 14.1 % (11.5-14.5); Red Blood Cell (RBC) Count 3.49 mill/uL (4.20-5.40); White Blood Cell (WBC) Count 4.8 thou/uL (4.8-10.8)
[2018-04-28 06:37] LABS: Anion Gap 12 mmol/L (10-20); BUN (Urea Nitrogen) 12 mg/dL (9.8-20.1); Calc. Creatinine Clearance 16 mL/min (70-130); Calcium 8.8 mg/dL (7.8-10.44); Carbon Dioxide 29 mmol/L (23-31); Chloride 98 mmol/L (98-107); Estimated GFR-MDRD 17; Glucose 84 mg/dL (83-110); Potassium 3.8 mmol/L (3.5-5.1); Sodium 135 mmol/L (136-145)
[2018-04-28] MEDS: Ubidecarenone 50 MG CAP PO SCH (08:55)
[2018-04-28] MEDS: Carvedilol 3.125 MG TAB PO SCH ×2 (08:56→21:58)
[2018-04-28] MEDS: Sacubitril 24.5 MG/Valsartan 25.5 MG TABLET PO SCH ×2 (08:56→21:58)
[2018-04-28] MEDS: Enoxaparin Sodium 30 MG/0.3 ML SYRINGE SC SCH (08:57)
[2018-04-28] MEDS: Calcium Acetate 667 MG CAP PO SCH ×3 (08:57→18:07)
[2018-04-28] MEDS: Folic Acid/Vit B Comp W-C PO SCH (08:57)
[2018-04-28] MEDS: Famotidine 20 MG TAB PO SCH (08:57)
--- NOTE | 2018-04-28 09:06 | CON ---
DATE OF CONSULTATION: 04/27/2018 NEPHROLOGY CONSULT NOTE CONSULTING PHYSICIAN: Arya Alvares MD REASON FOR CONSULTATION: End-stage renal disease evaluation and care. REASON FOR ADMISSION: Altered mentation and UTI. HISTORY OF PRESENT ILLNESS: This is a 78-year-old female with history of end-stage renal disease, congestive heart failure, dementia, hypertension, type 2 diabetes, came to the hospital with altered mentation, family brought her in. She is not able to give a good history. She is due for dialysis today Friday, Friday, and Friday. She was scheduled for today and Nephrology consulted for maintenance of hemodialysis. No chest pain. No nausea, vomiting, diarrhea reported. No evidence of shortness of breath. PAST MEDICAL HISTORY: Positive for; end-stage renal disease, type 2 diabetes, hypertension, dementia, and congestive heart failure. PAST SURGICAL HISTORY: Dialysis access placement, pacemaker, cholecystectomy, and hysterectomy. HOME MEDICATIONS: 1. CoQ10. 2. Entresto. 3. Seroquel. 4. Nephro-Ernie. 5. Pepcid. 6. Vitamin D3. 7. Coreg. 8. Calcium acetate. ALLERGIES: LORAZEPAM. SOCIAL HISTORY: No smoking, alcohol, or illicit drug use. FAMILY HISTORY: No history of any kidney disease. REVIEW OF SYSTEMS: Could not be obtained due to altered mentation. PHYSICAL EXAMINATION: GENERAL: This is an elderly demented lady, in no apparent distress. VITAL SIGNS: Temperature 97.4, pulse 69, respiratory rate 20, blood pressure 140/61. HEENT: Atraumatic and normocephalic. NECK: Supple. CARDIOVASCULAR: S1 and S2 heard. RESPIRATORY: Clear. GASTROINTESTINAL: Abdomen is soft. MUSCULOSKELETAL: dementia and lethargy. LABORATORY DATA: Hemoglobin is 10.6. Potassium 3.7, BUN is 31, and creatinine 4.92. ASSESSMENT AND PLAN: 1. End-stage renal disease, plan for dialysis today. Continue with regular schedule. 2. Edema, removed fluid. 3. Pleural effusion. 4. Hypertension, stable. 5. Anemia, stable. Plan is to continue on dialysis. Altered mentation with possible UTI, continue antibiotics. Thank you for the consult. We will follow. Job ID: [id number]
--- NOTE | 2018-04-28 13:05 | PRG ---
DATE OF SERVICE: 04/28/2018 SUBJECTIVE: A 78-year-old female is being seen for end-stage renal disease. The patient denies any nausea, vomiting, or chest pain. OBJECTIVE: GENERAL: The patient is awake, alert. VITAL SIGNS: Afebrile, pulse 70, breathing 16, blood pressure 120/61. GENERAL APPEARANCE AND MENTAL STATUS: Fair. HEAD/NECK: Normocephalic. Atraumatic. EYES: EOMI. No deformity. EARS: Clear. No ulcers. NOSE: Intact. No lesions. MOUTH: Clear. No discharge. THROAT: Clear. No exudate. LUNGS: Clear. No crackles. CARDIAC: S1, S2. No rub. ABDOMEN: Benign. Bowel sounds positive. GENITALIA/RECTUM: Hernandez absent. BACK/EXTREMITIES: Edema 0+. NEUROLOGICAL: Alert and motor intact. LABORATORY DATA: Hemoglobin 10.5. ASSESSMENT AND PLAN: 1. Stage 5 chronic kidney disease, continue hemodialysis. 2. Due to bilateral pleural effusion , I have ordered Palliative Care, the patient and her daughter have declined. 3. Anemia, stable. 4. Medication based on GFR as appropriate. 5. Overall prognosis is poor. Job ID: [id number]
[2018-04-28 13:12] VITALS: BMI 29.2
--- NOTE | 2018-04-28 15:17 | PDOC.PN ---
- Subjective Encounter Start Date: 04/28/18 Encounter Start Time: 09:15 Subjective: awake, not oriented -: child care supervisor at bedside -: not in distress - Objective Resuscitation Status - Order Detail: 04/27/18 14:44 Resuscitation Status Routine Resuscitation Status: DNAR: NO Resuscitation Discussed with: d/w daughter Ms.Adelita Roland KHOURY Reviewed: Yes Vital Signs & Weight: Vital Signs (12 hours) Temp Pulse Pulse Pulse Resp BP BP 04/28/18 12:00 98.2 F 70 16 04/28/18 09:50 69 70 134/64 118/49 L 04/28/18 08:43 04/28/18 08:15 68 131/61 04/28/18 08:00 98 F 70 16 04/28/18 04:00 98.5 F 71 19 BP Pulse Ox 04/28/18 12:00 147/87 H 98 04/28/18 09:50 04/28/18 08:43 98 04/28/18 08:15 04/28/18 08:00 121/61 98 04/28/18 04:00 128/60 99 Weight Admit Weight 129 lb 11.2 oz Weight 130 lb 6.4 oz Result Diagrams: 04/28/18 06:08 04/28/18 06:08 Phys Exam - Physical Examination HEENT: PERRLA, moist MMs Neck: no JVD, supple Respiratory: no wheezing, no rales Cardiovascular: RRR, no significant murmur Gastrointestinal: soft, non-tender, positive bowel sounds Musculoskeletal: no edema, pulses present Neurological: non-focal, moves all 4 limbs Dx/Plan (1) Acute exacerbation of congestive heart failure Code(s): I50.9 - HEART FAILURE, UNSPECIFIED Status: Acute Qualifiers: Heart failure type: unspecified Qualified Code(s): I50.9 - Heart failure, unspecified (2) Acute encephalopathy Code(s): G93.40 - ENCEPHALOPATHY, UNSPECIFIED Status: Acute (3) Failure to thrive in adult Status: Chronic (4) Anemia of renal disease Code(s): D63.1 - ANEMIA IN CHRONIC KIDNEY DISEASE Status: Chronic (5) ESRD (end stage renal disease) on dialysis Code(s): N18.6 - END STAGE RENAL DISEASE; Z99.2 - DEPENDENCE ON RENAL DIALYSIS Status: Chronic - Plan await final cultures -: she had HD yesterday, will have shortened version today with fluid removal -: cxr after HD to see for resolution of right pl effusion -: continue asp, coreg, entresto and midodrine on HD days -: palliative care consultation, has underlying dementia with multiple med iss * . Review of Systems - Medications/Allergies Allergies/Adverse Reactions: Allergies Allergy/AdvReac Type Severity Reaction Status Date / Time zolpidem [From Ambien] Allergy Verified 04/27/18 22:37 lorazepam [From Ativan] AdvReac Verified 04/27/18 22:37 Medications: Current Medications Acetaminophen (Tylenol) 650 mg PO Q4H PRN PRN Reason: Headache/Fever/Mild Pain (1-3) Aspirin (Aspirin Chewable) 81 mg PO DAILY [facility] Last Admin: 04/28/18 08:56 Dose: 81 mg Calcium Acetate (Phoslo) 667 mg PO TID[facility] Last Admin: 04/28/18 12:26 Dose: 667 mg Carvedilol (Coreg) 3.125 mg PO BID [facility] Last Admin: 04/28/18 08:56 Dose: 3.125 mg Cholecalciferol (Vitamin D3) 1,000 units PO DAILY [facility] Last Admin: 04/28/18 08:56 Dose: 1,000 units Coenzyme Q10 (Coenzyme Q10) 100 mg PO DAILY [facility] Last Admin: 04/28/18 08:55 Dose: 100 mg Enoxaparin Sodium (Lovenox) 30 mg SC 0900 [facility] Last Admin: 04/28/18 08:57 Dose: 30 mg Famotidine (Pepcid) 20 mg PO DAILY [facility] Last Admin: 04/28/18 08:57 Dose: 20 mg Guaifenesin/Dextromethorphan (Robitussin Dm) 15 ml PO Q4H PRN PRN Reason: Cough Midodrine (Proamatine) 2.5 mg PO MWF [facility] Quetiapine Fumarate (Seroquel) 12.5 mg PO HS [facility] Last Admin: 04/27/18 23:54 Dose: Not Given Sacubitril/Valsartan (Entresto 24.5 Mg-25.5 Mg Tablet) 0.5 tab PO BID [facility] Last Admin: 04/28/18 08:56 Dose: 0.5 tab Senna/Docusate Sodium (Senokot S) 2 tab PO BID PRN PRN Reason: Constipation Vitamin B Complex/Vit C/Folic Acid (Nephro-Ernie Tablet) 1 tab PO DAILY [facility] Last Admin: 04/28/18 08:57 Dose: 1 tab
--- NOTE | 2018-04-28 15:35 | RAD ---
SINGLE VIEW OF THE CHEST: Comparison: 04-27-18 History: Altered mental status. Bilateral infiltrates. FINDINGS: Single view of the chest shows an enlarged but stable cardiomediastinal silhouette. Low lung volumes are seen. The pacemaker is unchanged in position. Opacities are seen in both lung bases, right greate r than left. There may also be a small right pleural effusion. IMPRESSION: Stable exam. POS: CET
--- NOTE | 2018-04-28 21:16 | PDOC.EVN ---
Event Note - Event Note Event Note: code status explained in details, in family meeting with pt's , daughter and son, they expressed understanding and also expressed they had decided for the patient to have, only chemical code, no other aggressive measures to be applied to the patient if patient does not responds to medications then apply comfort care measures. also decision is for the patient not to have central line placement , no vasopressors.
--- NOTE | 2018-04-28 22:33 | CON ---
DATE OF CONSULTATION: 04/28/2018 SERVICE: Pulmonary Medicine. REASON FOR CONSULTATION: Respiratory failure. HISTORY OF PRESENT ILLNESS: The patient is a 78-year-old female with past medical history significant for end-stage renal disease and very advanced dementia. With significant assistance, she is able to get out of bed into the bathroom and then back to bed again. That being said, she is becoming less functional over the last several months. She cannot provide any additional elements of the history because of her advanced dementia. Currently, she tells me that she is 4 years old and is worried the principal is about to come into the classroom. She was brought to the hospital because of altered mentation. There was no evidence of any difficulty with breathing, but x-ray was positive for bilateral effusions. I am told from Dr. Jackson that the patient has been refusing dialysis and slapping at her care providers. She has been pulling the lines out of her during dialysis on rare occasion. The family is adamant that we continue aggressive care moving forward. PAST MEDICAL HISTORY: 1. Dementia, advanced. 2. End-stage renal disease. 3. History of CVA. 4. Chronic systolic heart failure. PAST SURGICAL HISTORY: 1. Pacemaker placement. 2. Dialysis access. 3. Cholecystectomy. 4. Hysterectomy. 5. Left knee total knee replacement. SOCIAL HISTORY: Negative for alcohol, tobacco, or illicit drug use. FAMILY HISTORY: Noncontributory. ALLERGIES: LORAZEPAM. MEDICATIONS: List of her inpatient medications was reviewed. No specific updates were made at this time. REVIEW OF SYSTEMS: GENERAL: Negative, except as mentioned in the HPI. HEAD, EARS, EYES, NOSE, AND THROAT: Negative, except as mentioned in the HPI. CARDIOVASCULAR: Negative, except as mentioned in the HPI. RESPIRATORY: Negative, except as mentioned in the HPI. GASTROINTESTINAL: Negative, except as mentioned in the HPI. GENITOURINARY: Negative, except as mentioned in the HPI. MUSCULOSKELETAL: Negative, except as mentioned in the HPI. NEUROLOGIC: Negative, except as mentioned in the HPI. SKIN: Negative, except as mentioned in the HPI. PHYSICAL EXAMINATION: VITAL SIGNS: Afebrile, pulse 70, blood pressure 147/87, respirations 16, and saturation 98% on room air. GENERAL: The patient is awake and alert, in no apparent distress. LUNGS: Excellent air entry. Crackles are present bilaterally. There is no prolonged expiratory phase or wheezing present. HEART: Normal rate and regular. ABDOMEN: Soft, nontender, and nondistended. Bowel sounds are positive. MUSCULOSKELETAL: No cyanosis or clubbing. No pitting in bilateral lower extremities. NEUROLOGIC: Grossly nonfocal. LABORATORY DATA: WBC 4.8, hemoglobin 10.5, and platelets 184,000. Differential remains normal on two separate occasions. Basic metabolic profile is normal. Lactate is completely unremarkable. Liver function studies are unremarkable. BNP 7000. Troponin 0.079. TSH 1.8. Urinalysis is positive for white blood cells and red blood cells. Hepatitis B surface antigen was nonreactive. Blood cultures x2 and urine culture remain unremarkable. IMAGING STUDIES: Chest x-ray demonstrates bilateral pleural effusions, interstitial opacifications, cephalization, and bilateral pulmonary edema. All of these findings are most consistent with volume overload. Low lung volumes accentuate our markings. There is a widened carinal angle, which is likely reflective of either mediastinal lymphadenopathy, or a very enlarged left atrium. ASSESSMENT: 1. Bilateral pleural effusions. 2. Volume overload. 3. End-stage renal disease. 4. Dementia, advanced. DISCUSSION AND PLAN: I would maximize ultrafiltration to remove as much fluid as possible. Repeat a chest x-ray in two weeks. I would prefer that this be an upright chest x-ray. At this point, I do not think any antibiotics are indicated directed at lung issues. She has a normal white blood cell count, is not tachypneic, has not demonstrated any fevers, and has not had any tachycardia since she has been in the hospital. I believe we are seeing natural progression of end-stage dementia. Palliative Care consultation will be placed. A diagnostic thoracentesis at some point could be considered if the effusion does not go away. We will have to weigh the risks and benefits of a theoretical future procedure with the patient's family if it comes to it. Pulmonary will continue to follow along for the time being. 70 minutes have been devoted to this patient in various activities. I personally reviewed all imaging studies and laboratory data noted within this document. For fifty percent of this time, I was interacting with the patient at the bedside or coordinating care with the care team. For the remainder of the time I was immediately available to the patient in the hospital unit. Job ID: [id number] [facility]
[2018-04-29 04:06] LABS: #Eosinphils 0.3 thou/uL (0.0-0.7); #Lymphocytes 1.5 thou/uL (1.20-3.40); #Monocytes 0.6 thou/uL (0.11-0.59); %Basophils 0.7 % (0.0-1.0); %Eosinophils 6.9 % (0.0-10.0); %Lymphocytes 34.8 % (21.0-51.0); %Monocytes 13.5 % (0.0-10.0); %Neutrophils 44.2 % (42.0-75.0); Hemoglobin 10.1 g/dL (12.0-16.0); Mean Corpuscular HGB CONC 32.4 g/dL (32.0-36.0); Mean Corpuscular Hemoglobin 30.3 pg (27.0-31.0); Mean Corpuscular Volume 93.6 fL (78.0-98.0); Mean Platelet Volume 7.9 fL (7.4-10.4); Platelet Count 175 thou/uL (130-400); RBC Distribution Width 13.9 % (11.5-14.5); Red Blood Cell (RBC) Count 3.32 mill/uL (4.20-5.40); White Blood Cell (WBC) Count 4.4 thou/uL (4.8-10.8)
[2018-04-29 04:30] LABS: Anion Gap 12 mmol/L (10-20); BUN (Urea Nitrogen) 20 mg/dL (9.8-20.1); Calc. Creatinine Clearance 11 mL/min (70-130); Calcium 8.6 mg/dL (7.8-10.44); Carbon Dioxide 27 mmol/L (23-31); Chloride 99 mmol/L (98-107); Estimated GFR-MDRD 11; Glucose 88 mg/dL (83-110); Potassium 3.7 mmol/L (3.5-5.1); Sodium 134 mmol/L (136-145)
[2018-04-29] MEDS: Midodrine HCl 5 MG TAB PO SCH (07:58)
[2018-04-29] MEDS: Calcium Acetate 667 MG CAP PO SCH ×3 (08:22→18:32)
--- NOTE | 2018-04-29 11:09 | PQF ---
DATE: 04-29-18 ATTN: DR. MARIS PRICE Please exercise your independent, professional judgment in responding to the clarification form. Clinical indicators are provided on the bottom of this form for your review Please check appropriate box(s): [ ] Encephalopathy: Etiology: [ X ] Metabolic [ ] Toxic [ ] Unspecified [ ] Other (please specify) [ ] Transient Alteration of Awareness [ ] Other diagnosis [ ] Unable to determine In addition, please specify: Present on Admission (POA): [X ] Yes [ ] No [ ] Unable to determine For continuity of documentation, please document condition throughout progress notes and discharge summary. Thank You. CLINICAL INDICATORS - SIGNS / SYMPTOMS / LABS ER: CONFUSION OVER LAST COUPLE OF DAYS, HX DEMENTIA, ALZHEIMERS, WEAKER THAN NORMAL ER DX: UTI, AMS, ESRD H&P: ACUTE ENCEPHALOPATHY CONSULT NOTE DR. RHODES 04-28-18: SHE WAS BROUGHT TO THE HOSPITAL BECAUSE OF ALTERED MENTATION. CONSULT NOTE DR. HO 04-27-18: ALTERED MENTATION AND UTI RISK FACTORS: CONSULT NOTE DR. HO 04-27-18: ALTERED MENTATION AND UTI H&P: ACUTE ENCEPHALOPATHY TREATMENTS: ER: CETRIAXONE IV, NS IVF (This form is maintained as a part of the permanent medical record) 2014 [employer] All Rights Reserved DIOGENES [email or web address] Office: [phone] [facility]
--- NOTE | 2018-04-29 11:15 | PRG ---
DATE OF SERVICE: 04/29/2018 SUBJECTIVE: A 78-year-old female, being seen for end-stage renal disease. The patient denies nausea, vomiting, or chest pain. OBJECTIVE: GENERAL: The patient is awake, alert. VITAL SIGNS: Afebrile, pulse 70, breathing 16, blood pressure 137/70. GENERAL APPEARANCE AND MENTAL STATUS: Fair. HEAD/NECK: Normocephalic. Atraumatic. EYES: EOMI. No deformity. EARS: Clear. No ulcers. NOSE: Intact. No lesions. MOUTH: Clear. No discharge. THROAT: Clear. No exudate. LUNGS: Clear. No crackles. CARDIAC: S1, S2. No rub. ABDOMEN: Benign. Bowel sounds positive. GENITALIA/RECTUM: Hernandez absent. BACK/EXTREMITIES: Edema 0+. NEUROLOGICAL: Alert and motor intact. LABORATORY DATA: Labs show hemoglobin 10. ASSESSMENT AND PLAN: 1. Stage 5 chronic kidney disease, continue hemodialysis. 2. Hypertension, stable. 3. Anemia, stable. 4. Medications based on glomerular filtration rate are appropriate. Job ID: [id number]
[2018-04-29] MEDS: Sacubitril 24.5 MG/Valsartan 25.5 MG TABLET PO SCH ×2 (13:01→22:09)
[2018-04-29] MEDS: Famotidine 20 MG TAB PO SCH (13:01)
[2018-04-29] MEDS: Folic Acid/Vit B Comp W-C PO SCH (13:02)
[2018-04-29] MEDS: Ubidecarenone 50 MG CAP PO SCH (13:02)
[2018-04-29] MEDS: Enoxaparin Sodium 30 MG/0.3 ML SYRINGE SC SCH (13:03)
[2018-04-29] MEDS: Carvedilol 3.125 MG TAB PO SCH ×2 (13:03→22:10)
--- NOTE | 2018-04-29 15:19 | PDOC.PN ---
- Subjective Encounter Start Date: 04/29/18 Encounter Start Time: 15:17 Subjective: seen and examined in HD. denies any pain/SOB/N/V/D -: care discussed w daughter,son & at bedside - Objective Resuscitation Status - Order Detail: 04/27/18 14:44 Resuscitation Status Routine Resuscitation Status: PRTL: Chem only Discussed with: d/w daughter Ms.Adelita Watkins, and son at bedside. MAR Reviewed: Yes Vital Signs & Weight: Vital Signs (12 hours) Temp Pulse Resp BP Pulse Ox 04/29/18 12:30 97.8 F 73 16 114/59 L 95 04/29/18 04:00 96.8 F L 70 19 133/63 97 Weight Admit Weight 129 lb 11.2 oz Weight 133 lb 4.8 oz Result Diagrams: 04/29/18 03:15 04/29/18 03:15 Additional Labs: Microbiology 04/27/18 11:20 Venous blood - Left Hand Blood Culture - Preliminary Specimen has been received and culture in progress. No Growth to date. 04/27/18 11:00 Urine voided Urine Culture - Preliminary NO GROWTH AT 24 HOURS 04/27/18 10:34 Venous blood - Left Arm Blood Culture - Preliminary Specimen has been received and culture in progress. No Growth to date. Laboratory Tests 01/15/18 01/19/18 04/27/18 19:50 08:31 10:34 Hgb 10.2 L 10.7 L 10.6 L Creatinine B-Natriuretic Peptide 04/27/18 04/27/18 04/28/18 10:34 10:34 06:08 Hgb Creatinine 4.92 H 2.69 H B-Natriuretic Peptide 7021.2 H 04/28/18 04/29/18 04/29/18 06:08 03:15 03:15 Hgb 10.5 L Creatinine 3.82 H B-Natriuretic Peptide 3666.9 H 04/29/18 03:15 Hgb 10.1 L Creatinine B-Natriuretic Peptide Phys Exam - Physical Examination Constitutional: NAD HEENT: PERRLA, moist MMs, sclera anicteric, oral pharynx no lesions Neck: no nodes, no JVD, supple, full ROM Respiratory: no wheezing, no rales, no rhonchi, clear to auscultation bilateral reduced at bases Cardiovascular: RRR, no significant murmur, no rub Gastrointestinal: soft, non-tender, no distention, positive bowel sounds Musculoskeletal: pulses present, edema present Neurological: non-focal, normal sensation, moves all 4 limbs Psychiatric: normal affect Skin: no rash Dx/Plan (1) Acute exacerbation of congestive heart failure Code(s): I50.9 - HEART FAILURE, UNSPECIFIED Status: Acute Qualifiers: Heart failure type: diastolic Qualified Code(s): I50.33 - Acute on chronic diastolic (congestive) heart failure Comment: Last ECHO 09/10 shows NL EF at 50% with diastolic dysfunction.New ECHO shows 35%.[employer] Operator Helper is Dr. Mccabe.On ASA,BB,Entresto (2) Acute metabolic encephalopathy Code(s): G93.41 - METABOLIC ENCEPHALOPATHY Status: Resolved (3) Elevated troponin Code(s): R74.8 - ABNORMAL LEVELS OF OTHER SERUM ENZYMES Status: Acute Comment: demand ischemia (4) Anemia of renal disease Code(s): D63.1 - ANEMIA IN CHRONIC KIDNEY DISEASE Status: Chronic (5) ESRD (end stage renal disease) on dialysis Code(s): N18.6 - END STAGE RENAL DISEASE; Z99.2 - DEPENDENCE ON RENAL DIALYSIS Status: Chronic (6) Failure to thrive in adult Status: Chronic (7) Secondary hyperparathyroidism of renal origin Code(s): N25.81 - SECONDARY HYPERPARATHYROIDISM OF RENAL ORIGIN Status: Chronic - Plan plan discussed w/ family, PT/OT, respiratory therapy, incentive spirometry, out of bed/ambulate, DVT proph w/SCDs Al C negaive so far including urine Cx from 04/10/18.will not start ABx. -: Fluid removal as tolerated with HD as per familiy wishes.Tolerating so far -: HH on DC . Hemodynamically stable. -: AM labs -: home meds as below * . Review of Systems - Review of Systems Constitutional: negative: fever, chills, sweats, weakness, malaise, other Respiratory: negative: Cough, Dry, Shortness of Breath, Hemoptysis, SOB with Excertion, Pleuritic Pain, Sputum, Wheezing Cardiovascular: negative: chest pain, palpitations, orthopnea, paroxysmal nocturnal dyspnea, edema, light headedness, other Gastrointestinal: negative: Nausea, Vomiting, Abdominal Pain, Diarrhea, Constipation, Melena, Hematochezia, Other Genitourinary: negative: Dysuria, Frequency, Incontinence, Hematuria, Retention , Other Skin: negative: Rash, Lesions, Rich, Bruising, Other Neurological: negative: Weakness, Numbness, Incoordination, Change in Speech, Confusion, Seizures, Other Other: limited due to dementia - Medications/Allergies Allergies/Adverse Reactions: Allergies Allergy/AdvReac Type Severity Reaction Status Date / Time zolpidem [From Ambien] Allergy Verified 04/27/18 22:37 lorazepam [From Ativan] AdvReac Verified 04/27/18 22:37 Medications: Current Medications Acetaminophen (Tylenol) 650 mg PO Q4H PRN PRN Reason: Headache/Fever/Mild Pain (1-3) Aspirin (Aspirin Chewable) 81 mg PO DAILY [facility] Last Admin: 04/29/18 13:02 Dose: 81 mg Calcium Acetate (Phoslo) 667 mg PO TID-[facility] Last Admin: 04/29/18 13:02 Dose: 667 mg Carvedilol (Coreg) 3.125 mg PO BID [facility] Last Admin: 04/29/18 13:03 Dose: 3.125 mg Cholecalciferol (Vitamin D3) 1,000 units PO DAILY [facility] Last Admin: 04/29/18 13:02 Dose: 1,000 units Coenzyme Q10 (Coenzyme Q10) 100 mg PO DAILY [facility] Last Admin: 04/29/18 13:02 Dose: 100 mg Enoxaparin Sodium (Lovenox) 30 mg SC 0900 [facility] Last Admin: 04/29/18 13:03 Dose: 30 mg Famotidine (Pepcid) 20 mg PO DAILY [facility] Last Admin: 04/29/18 13:01 Dose: 20 mg Guaifenesin/Dextromethorphan (Robitussin Dm) 15 ml PO Q4H PRN PRN Reason: Cough Midodrine (Proamatine) 2.5 mg PO MWF [facility] Last Admin: 04/29/18 07:58 Dose: 2.5 mg Quetiapine Fumarate (Seroquel) 12.5 mg PO HS [facility] Last Admin: 04/28/18 21:58 Dose: 12.5 mg Sacubitril/Valsartan (Entresto 24.5 Mg-25.5 Mg Tablet) 0.5 tab PO BID [facility] Last Admin: 04/29/18 13:01 Dose: 0.5 tab Senna/Docusate Sodium (Senokot S) 2 tab PO BID PRN PRN Reason: Constipation Vitamin B Complex/Vit C/Folic Acid (Nephro-Ernie Tablet) 1 tab PO DAILY [facility] Last Admin: 04/29/18 13:02 Dose: 1 tab
--- NOTE | 2018-04-29 23:19 | PRG ---
DATE OF SERVICE: 04/29/2018 SERVICE: Pulmonary Medicine. INTERVAL HISTORY: The patient is doing great from respiratory standpoint. Today, she successfully tolerated 3 L off during dialysis. Otherwise, there has been no interval change to her condition. She is breathing comfortably. She remains on room air. There has been no interval change to her condition. PHYSICAL EXAMINATION: VITAL SIGNS: Afebrile, pulse 69, blood pressure 99/51, respirations 19, and saturation 100% on room air. GENERAL: The patient is awake, alert, in no apparent distress. LUNGS: Excellent air entry. Dependent crackles are present. There is decreased air entry bibasilarly. That being said, there is no prolonged expiratory phase or wheezing appreciated. No rhonchi. HEART: Normal rate and regular. ABDOMEN: Soft, nontender, and nondistended. Bowel sounds are positive. MUSCULOSKELETAL: No cyanosis or clubbing. No pitting in the bilateral lower extremities noted. NEUROLOGIC: Nonfocal. LABORATORY DATA: WBC 4.4, hemoglobin 10.1, and platelets 175,000. Basic metabolic profile is essentially unremarkable. Her BNP has significantly reduced, likely because she is no longer on Entresto. Blood cultures x2, and urine culture are negative to date. IMAGING: Echocardiogram demonstrates 30% to 35% ejection fraction with inferior wall and distal septum akinesis. Left atrium is severely dilated. Moderate mitral regurgitation is noted. Moderately elevated pulmonary artery pressures. ASSESSMENT: 1. Chronic systolic and valvular heart failure. 2. Bilateral pleural effusions. 3. End-stage renal disease. 4. Dementia, advanced. 5. Volume overload, improving. DISCUSSION AND PLAN: I had a very long conversation with the patient's family about the prognosis that is associated with end-stage renal disease, heart failure, and advanced cognitive impairment. As long as the patient has what they deem good quality of life, they are interested in pursuing aggressive care. That being said, they understand that at some point in future, she will no longer have good quality of life and at that point, they will likely transition over to comfort care only , but we are not quite at that point. I will repeat a chest x-ray tomorrow morning. Hopefully, we can show that the pleural effusion burden has dropped. If it has, there will certainly be no indication for thoracentesis. Pulmonary will continue to follow for the time being. Job ID: [id number] [facility]
[2018-04-30] MEDS: Carvedilol 3.125 MG TAB PO SCH ×3 (01:04→20:57)
[2018-04-30] MEDS: Calcium Acetate 667 MG CAP PO SCH ×3 (08:06→17:48)
--- NOTE | 2018-04-30 08:54 | RAD ---
PORTABLE AP CHEST: Date: 04/30/18 HISTORY: Follow-up CHF. Patient is post dialysis. COMPARISON: 04/28/18. FINDINGS: Triple lead left subclavian AICD device is again noted in place. Cardiac silhouette is enlarged. Ther e has been interval decrease in pulmonary vascular congestion, as well as decrease in interstitial ed margret compared to prior exam. The pleural effusion at the right lung base has also almost completely re solved. There are persistent linear and slight patchy densities in the right infrahilar region. Vascu lar calcification again seen in thoracic aorta. Vascular stent again overlies the right subclavian ve ssels. Osteopenia is present. IMPRESSION: 1. Improvement in pulmonary vascular congestion and interstitial edema, as well as improvement in ri ght pleural effusion. 2. Mild persistent patchy density in the right infrahilar region, which may be related to residual e bossman, atelectasis, or pneumonitis. Continued follow-up is recommended. POS: JUAN C
[2018-04-30] MEDS: Enoxaparin Sodium 30 MG/0.3 ML SYRINGE SC SCH (10:54)
[2018-04-30] MEDS: Ubidecarenone 50 MG CAP PO SCH (10:54)
[2018-04-30] MEDS: Folic Acid/Vit B Comp W-C PO SCH (10:55)
[2018-04-30] MEDS: Stress 600 With Zinc 1 TAB PO SCH (10:55)
[2018-04-30] MEDS: Aspirin 81 mg Enteric Coated Tablet PO SCH (10:56)
[2018-04-30] MEDS: Famotidine 20 MG TAB PO SCH (10:56)
[2018-04-30] MEDS: Sacubitril 24.5 MG/Valsartan 25.5 MG TABLET PO SCH ×2 (11:16→20:56)
--- NOTE | 2018-04-30 12:19 | PRG ---
DATE OF SERVICE: 04/30/2018 SUBJECTIVE: A 78-year-old female, being seen for end-stage renal disease. The patient denies nausea, vomiting, or chest pain. OBJECTIVE: GENERAL: The patient is awake, alert. VITAL SIGNS: Afebrile, pulse 90, breathing 16, blood pressure GENERAL APPEARANCE AND MENTAL STATUS: Fair. HEAD/NECK: Normocephalic. Atraumatic. EYES: EOMI. No deformity. EARS: Clear. No ulcers. NOSE: Intact. No lesions. MOUTH: Clear. No discharge. THROAT: Clear. No exudate. LUNGS: Clear. No crackles. CARDIAC: S1, S2. No rub. ABDOMEN: Benign. Bowel sounds positive. GENITALIA/RECTUM: Hernandez absent. BACK/EXTREMITIES: Edema 0+. NEUROLOGICAL: Alert and motor intact. LABORATORY DATA: Labs show hemoglobin 10.1. ASSESSMENT AND PLAN: 1. Stage 3 chronic kidney disease, continue hemodialysis. 2. Hypertension, stable. 3. Anemia, stable. Medications based on glomerular filtration rate are appropriate. Job ID: [id number]
--- NOTE | 2018-04-30 13:40 | PDOC.PN ---
- Subjective Encounter Start Date: 04/30/18 Encounter Start Time: 13:38 Subjective: feels OK. no overnight events -: multiple family memebres at bedside.allQs answered - Objective Resuscitation Status - Order Detail: 04/27/18 14:44 Resuscitation Status Routine Resuscitation Status: PRTL: Chem only Discussed with: d/w daughter Ms.Adelita Watkins, and son at bedside. MAR Reviewed: Yes Vital Signs & Weight: Vital Signs (12 hours) Temp Pulse Resp BP Pulse Ox 04/30/18 11:55 97.5 F L 71 20 100 04/30/18 08:00 98 F 70 20 109/88 99 04/30/18 04:00 97.7 F 90 19 111/60 98 Weight Admit Weight 129 lb 11.2 oz Weight 122 lb Result Diagrams: 04/29/18 03:15 04/29/18 03:15 Additional Labs: Microbiology 04/27/18 11:00 Urine voided Urine Culture - Final NO GROWTH AT 48 HOURS 04/27/18 11:20 Venous blood - Left Hand Blood Culture - Preliminary NO GROWTH AT 48 HOURS 04/27/18 10:34 Venous blood - Left Arm Blood Culture - Preliminary NO GROWTH AT 48 HOURS Phys Exam - Physical Examination Constitutional: NAD HEENT: PERRLA, moist MMs, sclera anicteric, oral pharynx no lesions Neck: no nodes, no JVD, supple, full ROM Respiratory: no wheezing, no rales, no rhonchi, clear to auscultation bilateral Cardiovascular: RRR, no significant murmur, no rub Gastrointestinal: soft, non-tender, no distention, positive bowel sounds Musculoskeletal: no edema, pulses present Neurological: non-focal, normal sensation, moves all 4 limbs Psychiatric: normal affect Dx/Plan (1) Acute exacerbation of congestive heart failure Code(s): I50.9 - HEART FAILURE, UNSPECIFIED Status: Acute Qualifiers: Heart failure type: diastolic Qualified Code(s): I50.33 - Acute on chronic diastolic (congestive) heart failure Comment: Last ECHO 09/10 shows NL EF at 50% with diastolic dysfunction.New ECHO shows 35%.Pressure Tester Operator is Dr. Mccabe.On ASA,BB,Entresto (2) Acute metabolic encephalopathy Code(s): G93.41 - METABOLIC ENCEPHALOPATHY Status: Resolved (3) Elevated troponin Code(s): R74.8 - ABNORMAL LEVELS OF OTHER SERUM ENZYMES Status: Acute Comment: demand ischemia (4) Anemia of renal disease Code(s): D63.1 - ANEMIA IN CHRONIC KIDNEY DISEASE Status: Chronic (5) ESRD (end stage renal disease) on dialysis Code(s): N18.6 - END STAGE RENAL DISEASE; Z99.2 - DEPENDENCE ON RENAL DIALYSIS Status: Chronic (6) Failure to thrive in adult Status: Chronic (7) Secondary hyperparathyroidism of renal origin Code(s): N25.81 - SECONDARY HYPERPARATHYROIDISM OF RENAL ORIGIN Status: Chronic - Plan PT/OT, respiratory therapy, incentive spirometry, out of bed/ambulate, DVT proph w/SCDs clinically better.ECHO results discussed. pt on ASA,BB.BP too low for COLTEN-I -: encouraged to f/u w their fire control officer.they do not want aggressive measures -: Do not want Cath as per their discussionw Dr Mccabe -: cont supportive care.CXR shows improvement. -: jim [place] home w [facility] tomorrow if Ok w PCCM * . Review of Systems - Review of Systems Other: limited due to Dementia and family answering fro pt and busy w pt's feeds - Medications/Allergies Allergies/Adverse Reactions: Allergies Allergy/AdvReac Type Severity Reaction Status Date / Time zolpidem [From Ambien] Allergy Verified 04/27/18 22:37 lorazepam [From Ativan] AdvReac Verified 04/27/18 22:37 Medications: Current Medications Acetaminophen (Tylenol) 650 mg PO Q4H PRN PRN Reason: Headache/Fever/Mild Pain (1-3) Aspirin (Ecotrin) 81 mg PO DAILY [facility] Last Admin: 04/30/18 10:56 Dose: 81 mg Calcium Acetate (Phoslo) 667 mg PO TID-[facility] Last Admin: 04/30/18 11:14 Dose: 667 mg Carvedilol (Coreg) 3.125 mg PO BID [facility] Last Admin: 04/30/18 10:56 Dose: 3.125 mg Cholecalciferol (Vitamin D3) 1,000 units PO DAILY [facility] Last Admin: 04/30/18 10:55 Dose: 1,000 units Coenzyme Q10 (Coenzyme Q10) 100 mg PO DAILY [facility] Last Admin: 04/30/18 10:54 Dose: 100 mg Enoxaparin Sodium (Lovenox) 30 mg SC 0900 [facility] Last Admin: 04/30/18 10:54 Dose: 30 mg Ergocalciferol (Drisdol) 1.25 mg PO MoFr@1500 [facility] Famotidine (Pepcid) 20 mg PO DAILY [facility] Last Admin: 04/30/18 10:56 Dose: 20 mg Guaifenesin/Dextromethorphan (Robitussin Dm) 15 ml PO Q4H PRN PRN Reason: Cough Midodrine (Proamatine) 2.5 mg PO MWF [facility] Last Admin: 04/29/18 07:58 Dose: 2.5 mg Multivitamins/Zinc (Stress 600 With Zinc) 1 tab PO DAILY [facility] Last Admin: 04/30/18 10:55 Dose: 1 tab Quetiapine Fumarate (Seroquel) 12.5 mg PO HS [facility] Last Admin: 04/29/18 22:10 Dose: 12.5 mg Sacubitril/Valsartan (Entresto 24.5 Mg-25.5 Mg Tablet) 0.5 tab PO BID [facility] Last Admin: 04/30/18 11:16 Dose: 0.5 tab Senna/Docusate Sodium (Senokot S) 2 tab PO BID PRN PRN Reason: Constipation Sertraline HCl (Zoloft) 25 mg PO DAILY [facility] Last Admin: 04/30/18 10:56 Dose: 25 mg Vitamin B Complex/Vit C/Folic Acid (Nephro-Ernie Tablet) 1 tab PO DAILY [facility] Last Admin: 04/30/18 10:55 Dose: 1 tab
[2018-04-30] MEDS ORDERED: ALPRAZolam 0.25 MG TAB PO PRN (15:29)
[2018-05-01] MEDS: Enoxaparin Sodium 30 MG/0.3 ML SYRINGE SC SCH (09:10)
[2018-05-01] MEDS: Ubidecarenone 50 MG CAP PO SCH (09:11)
[2018-05-01] MEDS: Famotidine 20 MG TAB PO SCH (09:11)
[2018-05-01] MEDS: Sacubitril 24.5 MG/Valsartan 25.5 MG TABLET PO SCH (09:11)
[2018-05-01] MEDS: Aspirin 81 mg Enteric Coated Tablet PO SCH (09:11)
[2018-05-01] MEDS: Calcium Acetate 667 MG CAP PO SCH ×2 (09:12→19:24)
[2018-05-01] MEDS: Carvedilol 3.125 MG TAB PO SCH (09:12)
[2018-05-01] MEDS: Folic Acid/Vit B Comp W-C PO SCH (09:12)
[2018-05-01] MEDS: Stress 600 With Zinc 1 TAB PO SCH (09:12)
--- NOTE | 2018-05-01 09:52 | PRG ---
DATE OF SERVICE: 04/30/2018 SERVICE: Pulmonary Medicine. INTERVAL HISTORY: The patient is breathing much better today. She tolerated dialysis yesterday and they pulled 3 L of fluid off. We had a repeat chest x-ray this morning. There was a significant interval improvement in her x-ray findings. She cannot provide any additional elements of the history because of her advanced dementia. PHYSICAL EXAMINATION: VITAL SIGNS: Afebrile, pulse 69, blood pressure 134/67, respirations 16, and saturation 93% on room air. GENERAL: The patient is awake, alert, in no apparent distress. LUNGS: Decent air entry. There are still some dependent crackles, but this is much improved. There is no prolonged expiratory phase or wheezing. HEART: Normal rate, regular. ABDOMEN: Soft, nontender, nondistended. Bowel sounds are positive. MUSCULOSKELETAL: No cyanosis or clubbing. No pitting in the bilateral lower extremities. NEUROLOGIC: Grossly nonfocal. IMAGING DATA: Chest x-ray demonstrates dramatic improvement in the infiltrates. Bilateral effusions are actually smaller. ASSESSMENT: 1. Chronic systolic and valvular heart failure. 2. Bilateral pleural effusions secondary to volume overload. 3. End-stage renal disease. 4. Dementia, advanced. DISCUSSION AND PLAN: At this point, the patient's chest x-ray has improved dramatically. She remains on room air. She will require a repeat chest x-ray in 2 weeks once her volume status has been optimized to prove that she has interval improvement once again. At this point, she has no further inpatient requirements for Pulmonary Critical Care opinion and I will sign off. Please call with additional questions or concerns moving forward. Job ID: [id number]
[2018-05-01 11:45] VITALS: BP 118/66; TEMP 97.1
--- NOTE | 2018-05-01 11:49 | PRG ---
DATE OF SERVICE: 05/01/2018 SUBJECTIVE: This is a 78-year-old female with end-stage renal disease. The patient denies any complaints. OBJECTIVE: GENERAL: The patient is awake and alert. VITAL SIGNS: Pulse 73, breathing 16, blood pressure 135/67. GENERAL APPEARANCE AND MENTAL STATUS: Fair. HEAD/NECK: Normocephalic. Atraumatic. EYES: EOMI. No deformity. EARS: Clear. No ulcers. NOSE: Intact. No lesions. MOUTH: Clear. No discharge. THROAT: Clear. No exudate. LUNGS: Clear. No crackles. CARDIAC: S1, S2. No rub. ABDOMEN: Benign. Bowel sounds positive. GENITALIA/RECTUM: Hernandez absent. BACK/EXTREMITIES: Edema 0+. NEUROLOGICAL: Alert and motor intact. LABORATORY DATA: Hemoglobin 10.1. Potassium 3.7. ASSESSMENT AND RECOMMENDATIONS: 1. Stage 3 chronic kidney disease, stable. 2. Hypertension, stable. 3. Anemia, stable. 4. Medications based on glomerular filtration rate as appropriate. Job ID: [id number]
[2018-05-01] MEDS: Midodrine HCl 5 MG TAB PO SCH (14:37)
[2018-05-01] MEDS ORDERED: Ergocalciferol 1.25 MG(50,000 UNITS) CAP PO SCH (15:00)
--- NOTE | 2018-05-02 14:07 | EKG ---
Test Reason : Blood Pressure : / mmHG Vent. Rate : 077 BPM Atrial Rate : 069 BPM P-R Int : 160 ms QRS Dur : 004 ms QT Int : 308 ms P-R-T Axes : 000 000 054 degrees QTc Int : 348 ms Electronic atrial pacemaker Indeterminate axis Pulmonary disease pattern Nonspecific T wave abnormality Abnormal ECG Confirmed by LAURYN HARTMAN, CARMELA Barroso ([id number]), newspaper copy editor HEENA NAVAS ([id number]) on 05/02/2018 2:07:17 PM Referred By: Confirmed By:CARMELA COMBS MD
--- NOTE | 2018-05-05 16:40 | PQF ---
MARYAN WEBER RICHA MD [id number] [facility] [id number] CLINICAL DOCUMENTATION CLARIFICATION FORM: POST DISCHARGE Addendum to original discharge summary date: ____ Late entry note date: __ DATE: 05/05/2018 ATTN: DR. PRICE Please exercise your independent, professional judgment in responding to the clarification form. Clinical indicators are provided on the bottom of this form for your review Please check appropriate box(s) to clarify if the following diagnosis has been ruled in or ruled out: UTI [ ] Ruled in diagnosis [ ] Continue to treat [ ] Resolved [ ] Ruled out diagnosis [ ] Cannot rule out diagnosis [ ] Other diagnosis [ ] Unable to determine In addition, please specify: Present on Admission (POA): [ ] Yes [ ] No [ ] Unable to determine For continuity of documentation, please document condition throughout progress notes and discharge summary. Thank You. CLINICAL INDICATORS - SIGNS / SYMPTOMS / LABS: 04/27 ER Report -Altered mental status, UTI 04/27 Lab - UA shows large leukocyte esterase 04/27 Consult - Altered mentation and UTI, continue antibiotics RISK FACTORS: ESRD CHF HTN TREATMENTS: ER : IV Antibiotic, IVF (This form is maintained as a part of the permanent medical record) 2014 [employer]. All Rights Reserved Adamaris Staton, CCS, EXPERIENCE PLANNING STRATEGIST-H [email or web address] [phone] [email or web address]
== END 2018-05-01 19:30 | disposition home health service (06) | DRG 291 ==
LOC: EEVIPCON 09:31 → ERS 09:31 → ERHOLD 12:15 → 2SE 22:05
PROVIDERS: ADMIT Internal Medicine; ATTEND Internal Medicine
PROC: 5A1D70Z Performance of Urinary Filtration, Intermittent, Less than 6 Hours Per Day (ICD-10-PCS; principal; 2018-04-27)
DX: I13.2 Hypertensive heart and chronic kidney disease with heart failure and with stage 5 chronic kidney disease, or end stage renal disease (principal); I50.33 Acute on chronic diastolic (congestive) heart failure; N18.6 End stage renal disease; G93.41 Metabolic encephalopathy; N25.81 Secondary hyperparathyroidism of renal origin; N39.0 Urinary tract infection, site not specified; Z99.2 Dependence on renal dialysis; D63.1 Anemia in chronic kidney disease; R62.7 Adult failure to thrive; Z86.73 Personal history of transient ischemic attack (TIA), and cerebral infarction without residual deficits; Z95.0 Presence of cardiac pacemaker; Z66 Do not resuscitate; F03.90 Unspecified dementia, unspecified severity, without behavioral disturbance, psychotic disturbance, mood disturbance, and anxiety; E11.22 Type 2 diabetes mellitus with diabetic chronic kidney disease; R74.8 Abnormal levels of other serum enzymes
CPT/HCPCS: 36415; 36416; 51701; 71045; 80048; 80053; 81003; 81015; 82553; 83605; 83880; 84443; 84484; 85025; 87040; 87086; 87340; 90935; 93005; 93306; 96361; 96365; G0257; G8978-GP-CL; G8979-GP-CJ; G8987-GO-CL; G8988-GO-CL; G8989-GO-CL; J0696; J1650; J7050

== ENCOUNTER 2018-06-01 13:09 | Outpatient (CLI) | payer MEDICARE, MEDICAID ==
--- NOTE | 2018-06-01 14:38 | RAD ---
PA AND LATERAL OF THE CHEST: INDICATION: History of chest congestion. COMPARISON: Prior exam dated 04/30/2018. FINDINGS: There are patchy areas of airspace opacity and consolidation of the right lower lobe that persist fro m the comparison exam suspicious for pneumonia. There is a small right pleural effusion. There is c ardiomegaly. The left lung is clear. No acute osseous abnormality is evident. Dual-lead AICD is un changed. IMPRESSION: Persistent right lower lobe pneumonia with a small peripneumonic effusion. POS: JUAN C
== END 2018-06-01 13:10 | disposition home or self-care (01) ==
LOC: SCSRAD 13:09
PROVIDERS: ATTEND Family Medicine
DX: R09.89 Other specified symptoms and signs involving the circulatory and respiratory systems (principal); J18.1 Lobar pneumonia, unspecified organism; J90 Pleural effusion, not elsewhere classified
CPT/HCPCS: 71046